=== PATIENT | female | born 1950 | race Caucasian/White ===

== ENCOUNTER 2016-11-16 19:51 | Emergency (ER) | payer MEDICARE, OTHER ==
[~2016-11-16] VITALS: Ht 160 cm; Wt 81.6 kg
[~2016-11-16 19:51] MED LIST: METF1000 PO; MIC5 PO; NAPR500T1 PO; TRAM100T11 PO; VENL75CE5 PO
[2016-11-16 20:03] VITALS: BP 121/74
--- NOTE | 2016-11-16 21:08 | NUR ---
TO ER BED 3
--- NOTE | 2016-11-16 21:32 | NUR ---
66Y/F PT. PRESENTS TO ED WITH C/O COUGH WITH FEVER X 1 WK. HX. DM. AAO X4, AMBULATORY WITH STEADY GAIT. RESPIRATIONS ROOM AIR, EVEN AND UNLABORED. C/O PRODUCTIVE COUGH NOTED. C/O PAIN 08/17. VSS, ER MADE AWARE OF PT. STATUS.
--- NOTE | 2016-11-16 21:32 | NUR ---
Patient being evaluated by DR. NOYOLA at bedside.
[2016-11-16] MEDS ORDERED: ALBUTEROL 0.083% 2.5 MG/3 ML NEBU INH ONE (21:35)
[2016-11-16] MEDS ORDERED: predniSONE 20 MG TAB PO ONE (21:35)
[2016-11-16] MEDS ORDERED: IPRATROPIUM 0.02% 0.5 MG/2.5 ML NEBU INH ONE (21:35)
[2016-11-16 22:24] VITALS: BP 122/60
--- NOTE | 2016-11-16 22:25 | NUR ---
Patient discharged with v/s stable. Written and verbal after care instructions given and explained. Patient alert, oriented and verbalized understanding of instructions. Ambulatory with steady gait. All questions addressed prior to discharge. ID band removed. Patient advised to follow up with PMD. Rx of PREDNISONE 20 MG, DEXTROMETHROPHAN/PROMETHAZINE 15/6.25MG/5ML, ALBUTEROL 90 MCG/ACTUATION given. Patient educated on indication of medication including possible reaction and side effects. Opportunity to ask questions provided and answered.
== END 2016-11-16 22:25 | disposition home or self-care (01) ==
LOC: MED 19:51
DX: J20.9 Acute bronchitis, unspecified (principal); E11.9 Type 2 diabetes mellitus without complications
CPT/HCPCS: 71020; 99284; J7512; J7613; J7644; 94640

== ENCOUNTER 2016-12-14 00:15 | Emergency (ER) | payer OTHER ==
[~2016-12-14] VITALS: Ht 160 cm; Wt 78.0 kg
[2016-12-14 00:18] VITALS: BP 126/73
--- NOTE | 2016-12-14 00:29 | NUR ---
LEDY MONTERROSOR TO ER BED 3
--- NOTE | 2016-12-14 00:34 | NUR ---
66 Y/O F W/C/O RT LEG PAIN TODAY. PT STATES HAD SURGERY TO REMOVED VARICOSE VEINS X 2 MTHS AGO. MED HX HTN, DM TYPE 2, AND VARICOSE VEINS. TAMI HOWE MADE AWARE.
--- NOTE | 2016-12-14 00:46 | NUR ---
Patient being evaluated by physician at bedside.
[2016-12-14] MEDS ORDERED: KETOROLAC 60 MG/2 ML VIAL IM ONE (00:55)
--- NOTE | 2016-12-14 01:20 | NUR ---
ULTRASOUND AT BEDSIDE.
[2016-12-14 03:05] VITALS: BP 128/59
--- NOTE | 2016-12-14 03:05 | NUR ---
Patient discharged with v/s stable. Written and verbal after care instructions given and explained. Patient alert, oriented and verbalized understanding of instructions. Ambulatory with steady gait. All questions addressed prior to discharge. ID band removed. Patient advised to follow up with PMD OR RETURN BACK TO WORK IF CONDITION WORSENS. Rx of MOTRIN, AND TRAMADOL given. Patient educated on indication of medication including possible reaction and side effects. Opportunity to ask questions provided and answered.
== END 2016-12-14 03:05 | disposition home or self-care (01) ==
LOC: MED 00:15
DX: I80.01 Phlebitis and thrombophlebitis of superficial vessels of right lower extremity (principal); R03.0 Elevated blood-pressure reading, without diagnosis of hypertension; E11.9 Type 2 diabetes mellitus without complications; Z79.899 Other long term (current) drug therapy; Z88.8 Allergy status to other drugs, medicaments and biological substances
CPT/HCPCS: 73562; 93971; 96372; 99284; J1885; Q0092

== ENCOUNTER 2018-05-07 16:57 | Emergency (ER) | payer OTHER ==
[~2018-05-07] VITALS: Ht 160 cm; Wt 78.0 kg
[~2018-05-07 16:57] MED LIST changes: +NAPR-54 PO; -NAPR500T1 PO
[2018-05-07 17:02] VITALS: BP 150/84
--- NOTE | 2018-05-07 19:00 | NUR ---
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 PT STATES HER ARM "FEELS LIKE IT WAS ELECTROCUTED". DENIES PAIN, FULL CLEAR SPEECH, NO MOTOR DEFICITS IN BILAT EXTREMS, SMILE SYMMETRICAL. -- BS: 136 -- PMH: DM, HTN, HYPERCHOLESTEROLEMIA, DEPRESSION
--- NOTE | 2018-05-07 21:00 | NUR ---
DR. NOVAK AT BEDSIDE FOR EVALUATION.
[2018-05-07] MEDS ORDERED: CHOL200072 PO (21:13)
[2018-05-07] MEDS ORDERED: ATOR20TA PO (21:13)
[2018-05-07] MEDS ORDERED: CARV6.252 PO (21:13)
[2018-05-07] MEDS ORDERED: LISI2.5T12 PO (21:13)
[2018-05-07] MEDS ORDERED: VENL150C1 PO (21:13)
[2018-05-07] MEDS ORDERED: HUM SUBQ (21:13)
[2018-05-07 21:34] LABS: BASOPHILS # (AUTO) 0.1 K/uL (0.00-0.22); BASOPHILS % (AUTO) 0.6 % (0.0-2.0); EOSINOPHILS # (AUTO) 0.3 K/uL (0-0.4); EOSINOPHILS % (AUTO) 3.3 % (0.0-4.0); HEMATOCRIT 40.1 % (36-48); HEMOGLOBIN 13.2 g/dL (12.0-16.0); LYMPHOCYTES # (AUTO) 3.1 K/uL (2.5-16.5); LYMPHOCYTES % (AUTO) 35.4 % (20.5-51.1); MEAN CORPUSCULAR HEMOGLOBIN 30 pg (27-31); MEAN CORPUSCULAR HGB CONC 33 g/dL (33-37); MEAN CORPUSCULAR VOLUME 91.9 fL (80-94); MONOCYTES # (AUTO) 0.5 K/uL (0.8-1.0); MONOCYTES % (AUTO) 6.1 % (1.7-9.3); NEUTROPHILS # (AUTO) 4.7 K/uL (1.8-7.7); NEUTROPHILS % (AUTO) 54.6 % (42.2-75.2); PLATELET COUNT (AUTO) 289 K/uL (140-450); RED BLOOD CELL COUNT(AUTO) 4.36 MIL/uL (4.20-5.40); RED CELL DISTRIBUTION WIDTH 13.6 % (11.6-13.7); WHITE BLOOD COUNT (AUTO) 8.7 K/uL (4.8-10.8)
[2018-05-07 21:43] LABS: APPEARANCE,URINE CLEAR (CLEAR); BILIRUBIN,URINE NEGATIVE (NEGATIVE); BLOOD, URINE NEGATIVE (NEGATIVE); COLOR,URINE YELLOW (YELLOW); LEUKOCYTE ESTERASE ,URINE NEGATIVE (NEGATIVE); NITRITE, URINE NEGATIVE (NEGATIVE); PH,URINE 8.5 (5.0-9.0); UGLUCOSE 1+ (NEGATIVE)
[2018-05-07 21:50] LABS: ANION GAP 12.4 (8-16); CARBON DIOXIDE 28.5 mmol/L (21-32); CREATININE 0.5 mg/dL (0.6-1.3); POTASSIUM 3.9 mmol/L (3.5-5.1)
[2018-05-07 21:57] LABS: ALBUMIN 3.2 g/dL (3.4-5.0); CHOL/HDL RATIO 3.8 (1-4.5); TOTAL BILIRUBIN 0.3 mg/dL (0.0-1.0)
[2018-05-07] MEDS ORDERED: KETOROLAC 60 MG/2 ML VIAL IM ONE (22:50)
--- NOTE | 2018-05-07 23:30 | NUR ---
Patient discharged with v/s stable. Written and verbal after care instructions given and explained. Patient alert, oriented and verbalized understanding of instructions. Ambulatory with steady gait. All questions addressed prior to discharge. ID band removed. Patient advised to follow up with PMD. Rx of NEURTONIN given. Patient educated on indication of medication including possible reaction and side effects. Opportunity to ask questions provided and answered.
[2018-05-08 02:29] VITALS: BP 141/79
== END 2018-05-07 23:30 | disposition home or self-care (01) ==
LOC: MED 16:57
DX: E11.42 Type 2 diabetes mellitus with diabetic polyneuropathy (principal); I10 Essential (primary) hypertension; Z79.4 Long term (current) use of insulin; Z79.899 Other long term (current) drug therapy; Z88.8 Allergy status to other drugs, medicaments and biological substances
CPT/HCPCS: 36415; 80053; 80061; 81003; 81025; 83036; 84484; 85025; 96372; 99283; J1885

== ENCOUNTER 2018-11-09 19:39 | Emergency (ER) | payer OTHER ==
[~2018-11-09] VITALS: Ht 160 cm; Wt 81.8 kg
[~2018-11-09 19:39] MED LIST changes: +ASPI81CT95 PO; +ATOR20TA PO; +BENA20TA PO; +CARV6.252 PO; +CHOL200072 PO; +ERGO2000 PO; +GLYB5TAB9 PO; +HUM SUBQ; +LANC-947 MC; +LISI2.5T12 PO; +MECL-272 PO; +METF100028 PO; -MIC5 PO; -NAPR-54 PO; +ORE25 PO; +PIOG30TA PO; +QUIN20TA PO; +TELM40TA1 PO; -TRAM100T11 PO; +TUJEO SQ; +VENL150C1 PO; -VENL75CE5 PO; +VENL75TA17 PO
[2018-11-09 19:52] VITALS: BP 129/60
[2018-11-09 21:04] VITALS: BP 129/60
== END 2018-11-09 21:04 | disposition home or self-care (01) ==
LOC: MERGE 19:39 → MED 19:39
DX: S46.812A Strain of other muscles, fascia and tendons at shoulder and upper arm level, left arm, initial encounter (principal); E11.9 Type 2 diabetes mellitus without complications; I10 Essential (primary) hypertension; Z98.890 Other specified postprocedural states; Z79.4 Long term (current) use of insulin; Z79.899 Other long term (current) drug therapy; Z88.8 Allergy status to other drugs, medicaments and biological substances; X58.XXXA Exposure to other specified factors, initial encounter; Y93.89 Activity, other specified; Y92.89 Other specified places as the place of occurrence of the external cause; Y99.8 Other external cause status
CPT/HCPCS: 99283

== ENCOUNTER 2018-12-18 09:38 | Inpatient (IN) | payer OTHER ==
[~2018-12-18] VITALS: Ht 152.4 cm; Wt 77.6 kg
[2018-12-18 09:38] VITALS: BP 148/70
--- NOTE | 2018-12-18 09:38 | NUR ---
PT BIBA TO ER BED 10
--- NOTE | 2018-12-18 10:10 | NUR ---
Patient stated she has been week for 2 days with nausea, vommiting and non-bloody diahrera. She stated she has pain in both arms 8/10. The patient has a history of diabetes and hypertension. Denies fever and chills.
[2018-12-18] MEDS ORDERED: NACL 0.9% 1,000 ML IV SCH (10:18)
[2018-12-18] MEDS ORDERED: MORPHINE SULFATE 2 MG/ML SYR IVP ONE (10:20)
[2018-12-18] MEDS ORDERED: ONDANSETRON 4 MG/2 ML VIAL IVP ONE (10:20)
--- NOTE | 2018-12-18 10:45 | NUR ---
Patient had an episode of diahrea, non-bloody. Patient was cleaned and sheets were changed.
[2018-12-18 10:55] LABS: HEMATOCRIT 43.7 % (36-48); HEMOGLOBIN 14.5 g/dL (12.0-16.0); MEAN CORPUSCULAR HEMOGLOBIN 30 pg (27-31); MEAN CORPUSCULAR HGB CONC 33 g/dL (33-37); MEAN CORPUSCULAR VOLUME 90.6 fL (80-94); PLATELET COUNT (AUTO) 273 K/uL (140-450); RED BLOOD CELL COUNT(AUTO) 4.82 MIL/uL (4.20-5.40); RED CELL DISTRIBUTION WIDTH 14.1 % (11.6-13.7); WHITE BLOOD COUNT (AUTO) 19.9 K/uL (4.8-10.8)
[2018-12-18 11:04] LABS: APPEARANCE,URINE HAZY (CLEAR); BILIRUBIN,URINE NEGATIVE (NEGATIVE); BLOOD, URINE TRACE-I (NEGATIVE); COLOR,URINE YELLOW (YELLOW); LEUKOCYTE ESTERASE ,URINE TRACE (NEGATIVE); NITRITE, URINE NEGATIVE (NEGATIVE); UGLUCOSE 3+ (NEGATIVE)
[2018-12-18 11:10] LABS: ANION GAP 16.5 (8-16); CARBON DIOXIDE 24.7 mmol/L (21-32); CREATININE 0.7 mg/dL (0.6-1.3); POTASSIUM 3.2 mmol/L (3.5-5.1)
[2018-12-18 11:16] LABS: ALBUMIN 3.4 g/dL (3.4-5.0); TOTAL BILIRUBIN 0.7 mg/dL (0.0-1.0)
[2018-12-18 11:19] LABS: BASOPHILS % (MANUAL) 0 % (0-2); EOSINOPHILS % (MANUAL) 0 % (0-4); LYMPHOCYTES % (MANUAL) 4 % (20-46); MONOCYTES % (MANUAL) 10 % (5-12); PROTHROMBIN TIME 10.8 secs (10.8-13.4)
--- NOTE | 2018-12-18 11:24 | NUR ---
PT TAKEN FOR CT SCAN VIA [facility].
[2018-12-18] MEDS ORDERED: NACL 0.9% 1,500 ML IV ONE (11:25)
[2018-12-18] MEDS ORDERED: LEVOFLOXACIN 500 MG/D5W PREMIX 100 ML IV ONE (11:25)
[2018-12-18 11:28] LABS: RBC,URINE 0-5 /HPF (0-5)
[2018-12-18 11:29] LABS: URINE AMORPHOUS URATE 1+ /HPF (None Seen); WBC,URINE 0-5 /HPF (0-5)
[2018-12-18 11:30] LABS: YEAST,URINE Few /HPF (None Seen)
--- NOTE | 2018-12-18 12:28 | NUR ---
PT AND PT'S DAUGHTER DO NOT KNOW HOME MEDS. PT'S DAUGHTER STATES SHE WILL GO HOME AND GET THE LIST.
[2018-12-18] MEDS ORDERED: MORPHINE SULFATE 4 MG/ML SYR IVP PRN (13:55)
[2018-12-18] MEDS ORDERED: INSULIN LISPRO SLIDING SCALE 100 UNITS/ML VIAL SUBQ PRN (13:55)
[2018-12-18] MEDS ORDERED: LORazepam 2 MG/ML VIAL IVP PRN (13:55)
[2018-12-18] MEDS ORDERED: ONDANSETRON 4 MG/2 ML VIAL IVP PRN (13:55)
[2018-12-18] MEDS ORDERED: ALBUTEROL 0.083% 2.5 MG/3 ML NEBU INH PRN (13:55)
[2018-12-18] MEDS ORDERED: DEXTROSE 50% 50 ML SYR IVP PRN (13:55)
[2018-12-18] MEDS ORDERED: MORPHINE SULFATE 2 MG/ML SYR IVP PRN (13:55)
[2018-12-18] MEDS ORDERED: POTASSIUM CHLORIDE 40 MEQ, LIDOCAINE MPF 1% 25 MG in NACL 0.9% 250 ML IV ONE (15:30)
--- NOTE | 2018-12-18 15:45 | NUR ---
PT ADMITTED FROM ER. PATIENT COMING IN FROM HOME. LIVES WITH FAMILY. PT AWAKE AAOX3. DENIES PAIN AT TIME OF ADMISSION. REPORTS FEELING DIZZY. RESPIRATIONS EVEN AND UNLABORED ON 2L NC, CLEAR BREATH SOUNDS. IV IN PLACE PATENT AND ASYMPTOMATIC IN L AC 20G. PT ON CCHO 60G DIET. SINUS TACHY UPON ADMISSION WITH PULSE OF 108. BLOOD PRESSURE 123/56, TEMPERATURE 98. SKIN INTACT. FULL CODE. PT ACCOMPANIED BY HER DAUGHTER. INITIAL ASSESSMENT AND HISTORY DONE AT THIS TIME. BED IN LOW POSITION. SAFETY MEASURES IN PLACE. CALL LIGHT WITHIN REACH. WILL CONTINUE TO MONITOR.
--- NOTE | 2018-12-18 15:50 | NUR ---
Patient will be admitted to care of DR. CHRISTIANSON. Admited to TELE. Will go to room 118. Belongings list completed. Report to
[2018-12-18] MEDS: NACL 0.9% 1,000 ML IV SCH (16:00)
[2018-12-18] MEDS: ACETAMINOPHEN 325 MG TAB PO PRN ×2 (16:10→22:51)
[2018-12-18] MEDS: BLOOD GLUCOSE MONITORING 1 DEV DEV FS SCH ×2 (16:19→20:23)
[2018-12-18] MEDS: INSULIN LISPRO 100 UNITS/ML VIAL SUBQ SCH (17:01)
--- NOTE | 2018-12-18 17:07 | NUR ---
MEDICATIONS ADMINISTERED PER ORDER. PT TOLERATED WELL. SAFETY MEASURES IN PLACE. WILL CONTINUE TO MONITOR.
--- NOTE | 2018-12-18 18:52 | NUR ---
ROUNDS DONE AT THIS TIME. PT IN BED SLEEPING BUT AROUSABLE TO SPEECH. DENIES PAIN AT THIS TIME. SAFETY MEASURES IN PLACE. CALL LIGHT WITHIN REACH. WILL CONTINUE TO MONITOR.
--- NOTE | 2018-12-18 19:11 | NUR ---
BEDSIDE REPORT GIVEN TO NIGHT NURSE FOR CONTINUITY OF CARE.
--- NOTE | 2018-12-18 19:12 | NUR ---
RECEIVED ENDORSEMENT FROM AM SHIFT NURSE. PATIENT ALERT AND ORIENTED X3. NO APPARENT DISTRESS NOTED. INTRODUCED SELF AND UPDATED BOARD. IVF ON LEFT AC 20G INFUSING WELL. BED ON LOW POSITION. CALL LIGHT WITHIN REACH. WILL CONTINUE TO MONITOR.
[2018-12-18 20:00] VITALS: BP 105/49
[2018-12-18] MEDS: PIPERACILLIN/TAZOBACTAM 3.375 GM in DEXTROSE 5% 50 ML IV SCH (20:23)
[2018-12-18] MEDS ORDERED: ATORVASTATIN 20 MG TAB PO SCH ×2 (21:00)
[2018-12-18] MEDS: CARVEDILOL 6.25 MG TAB PO SCH (21:00)
--- NOTE | 2018-12-18 21:10 | NUR ---
PATIENT ASLEEP IN BED. NO APPARENT DISTRESS NOTED. WILL CONTINUE TO MONITOR.
--- NOTE | 2018-12-18 23:05 | NUR ---
PATIENT ASLEEP IN BED. NO DISTRESS NOTED. VISIBLE CHEST RISE AND FALL. WILL CONTINUE TO MONITOR.
[2018-12-19] VITALS: BP 117/53
--- NOTE | 2018-12-19 01:00 | NUR ---
PATIENT ASLEEP IN BED. BED IN LOW POSITION. CALL LIGHT WITHIN REACH. WILL CONTINUE TO MONITOR.
--- NOTE | 2018-12-19 02:55 | NUR ---
PATIENT ASLEEP IN BED. NO APPARENT DISTRESS NOTED. WILL CONTINUE TO MONITOR.
[2018-12-19 04:00] VITALS: BP 134/86
[2018-12-19] MEDS: NACL 0.9% 1,000 ML IV SCH (04:19)
--- NOTE | 2018-12-19 04:50 | NUR ---
PATIENT AWAKE IN BED. TALKING TO FAMILY ON PHONE. NO APPARENT DISTRESS NOTED. DENIES PAIN. WILL CONTINUE TO MONITOR.
[2018-12-19] MEDS: PIPERACILLIN/TAZOBACTAM 3.375 GM in DEXTROSE 5% 50 ML IV SCH ×2 (05:34→12:58)
[2018-12-19] MEDS: BLOOD GLUCOSE MONITORING 1 DEV DEV FS SCH ×2 (05:38→12:19)
--- NOTE | 2018-12-19 06:45 | NUR ---
PATIENT ASLEEP IN BED. NO DISTRESS NOTED. WILL CONTINUE TO MONITOR.
--- NOTE | 2018-12-19 07:15 | NUR ---
RECEIVED PT FROM NIGHT NURSE. PT ASLEEP, AROUSABLE TO SPEECH, AAOX3. DENIES PAIN AT THIS TIME. NO DISTRESS NOTED. RESPIRATIONS EVEN AND UNLABORED ON ROOM AIR. IV IN PLACE L AC 22G PATENT AND ASYMPTOMATIC INFUSING PER ORDER. CONTACT PRECAUTIONS. BED IN LOW POSITION. SAFETY MEASURES IN PLACE. CALL LIGHT WITHIN REACH. WILL CONTINUE TO MONITOR.
--- NOTE | 2018-12-19 07:30 | NUR ---
ENDORSED TO AM SHIFT NURSE IN STABLE CONDITION FOR CONTINUITY OF CARE.
[2018-12-19 08:00] VITALS: BP 120/60
--- NOTE | 2018-12-19 08:28 | NUR ---
PATIENT HAS BEEN SCREENED AND CATEGORIZED MODERATE NUTRITION RISK. PATIENT WILL BE SEEN WITHIN 3-5 DAYS OF ADMISSION. 12/21/18 12/23/[address]
[2018-12-19] MEDS: CARVEDILOL 6.25 MG TAB PO SCH (08:31)
[2018-12-19] MEDS: INSULIN LISPRO 100 UNITS/ML VIAL SUBQ SCH ×2 (08:38→12:27)
--- NOTE | 2018-12-19 08:52 | NUR ---
MEDICATIONS GIVEN PER ORDER. PT TOLERATED WELL. NO DISTRESS NOTED. WILL CONTINUE TO MONITOR.
[2018-12-19] MEDS ORDERED: ENOXAPARIN 40 MG/0.4 ML SYR SUBQ SCH (09:00)
[2018-12-19] MEDS ORDERED: ASPIRIN 81 MG TAB.CHEW PO SCH (09:00)
[2018-12-19] MEDS ORDERED: NON-FORMULARY ITEM (Aspirin 1 TAB) PO SCH (09:00)
[2018-12-19] MEDS ORDERED: VENLAFAXINE XR 75 MG CAPER PO SCH (09:00)
[2018-12-19] MEDS ORDERED: LISINOPRIL 5 MG TAB PO SCH (09:00)
[2018-12-19] MEDS ORDERED: BENAZEPRIL 10 MG TAB PO SCH (09:00)
[2018-12-19 09:02] LABS: BASOPHILS % (AUTO) 0.3 % (0.0-2.0); EOSINOPHILS % (AUTO) 0.1 % (0.0-4.0); HEMATOCRIT 40.3 % (36-48); HEMOGLOBIN 13.2 g/dL (12.0-16.0); LYMPHOCYTES # (AUTO) 1.1 K/uL (2.5-16.5); LYMPHOCYTES % (AUTO) 11.1 % (20.5-51.1); MEAN CORPUSCULAR HEMOGLOBIN 30 pg (27-31); MEAN CORPUSCULAR HGB CONC 33 g/dL (33-37); MEAN CORPUSCULAR VOLUME 92.3 fL (80-94); MONOCYTES # (AUTO) 0.6 K/uL (0.8-1.0); MONOCYTES % (AUTO) 5.9 % (1.7-9.3); NEUTROPHILS # (AUTO) 8.6 K/uL (1.8-7.7); NEUTROPHILS % (AUTO) 82.6 % (42.2-75.2); PLATELET COUNT (AUTO) 244 K/uL (140-450); RED BLOOD CELL COUNT(AUTO) 4.36 MIL/uL (4.20-5.40); RED CELL DISTRIBUTION WIDTH 14.2 % (11.6-13.7); WHITE BLOOD COUNT (AUTO) 10.4 K/uL (4.8-10.8)
[2018-12-19 09:56] LABS: ALBUMIN 2.5 g/dL (3.4-5.0); ANION GAP 11.4 (8-16); CREATININE 0.6 mg/dL (0.6-1.3); POTASSIUM 4.4 mmol/L (3.5-5.1); TOTAL BILIRUBIN 0.4 mg/dL (0.0-1.0)
--- NOTE | 2018-12-19 11:17 | NUR ---
BLOOD GLUCOSE MONITORED AT THIS TIME. PT DENIES PAIN. NO DISTRESS NOTED. SAFETY MEASURES IN PLACE. CALL LIGHT WITHIN REACH. WILL CONTINUE TO MONITOR.
[2018-12-19] MEDS: ACETAMINOPHEN 325 MG TAB PO PRN (13:03)
--- NOTE | 2018-12-19 14:12 | NUR ---
PT ROUNDS DONE AT THIS TIME. PT DENIES PAIN. NO DISTRESS NOTED. WILL CONTINUE TO MONITOR.
[2018-12-19] MEDS ORDERED: INFLUENZA VACCINE QUAD 0.5 ML SYR IMVAC PRN (14:45)
[2018-12-19] MEDS ORDERED: PNEUMOCOCCAL VACCINE 23 MCG/0.5 ML VIAL IMVAC SCH (14:45)
[2018-12-19 14:49] VITALS: BP 104/60
[2018-12-19] MEDS ORDERED: CIPR500T4 PO (15:19)
[2018-12-19] MEDS ORDERED: METR250T2 PO (15:23)
[2018-12-19] MEDS ORDERED: METR500T1 PO (15:32)
--- NOTE | 2018-12-19 16:00 | NUR ---
PT READY FOR DISCHARGE AT THIS TIME. DISCHARGE AND FOLLOWUP TEACHING GIVEN AT THIS TIME. PT VERBALIZED UNDERSTANDING. PNA AND FLU VACCINE GIVEN AT THIS TIME. PT TOLERATED WELL. DISCHARGE PAPERWORK SIGNED AND COPY GIVEN TO PT. PT STABLE, AAOX4, RESPIRATIONS EVEN AND UNLABORED ON ROOM AIR. IV SITE REMOVED WITH MINIMAL BLOOD LOSS AND LUMEN INTACT. HOME MEDICATIONS RETURNED TO PT. PT BELONGINGS VERIFIED AND RETURNED. ID BANDS REMOVED. PT ESCORTED OFF THE UNIT ON FOOT IN PRESENCE OF HER DAUGHTER. PT LEFT THE HOSPITAL IN PRIVATE VEHICLE.
== END 2018-12-19 16:10 | disposition home or self-care (01) | DRG 872 ==
LOC: MED 09:38 → MTU 13:58
PROVIDERS: ADMIT Internal Medicine Pulmonary Disease; ATTEND Internal Medicine Pulmonary Disease
PROC: 3E02340 Introduction of Influenza Vaccine into Muscle, Percutaneous Approach (ICD-10-PCS; principal; 2018-12-19)
PROC: 3E0234Z Introduction of Serum, Toxoid and Vaccine into Muscle, Percutaneous Approach (ICD-10-PCS; 2018-12-19)
DX: A41.9 Sepsis, unspecified organism (principal); K52.9 Noninfective gastroenteritis and colitis, unspecified; I10 Essential (primary) hypertension; E87.6 Hypokalemia; E11.65 Type 2 diabetes mellitus with hyperglycemia; E66.9 Obesity, unspecified; Z23 Encounter for immunization; Z88.8 Allergy status to other drugs, medicaments and biological substances; Z79.4 Long term (current) use of insulin; Z79.84 Long term (current) use of oral hypoglycemic drugs; Z68.33 Body mass index [BMI] 33.0-33.9, adult
CPT/HCPCS: 36415; 71045; 80053; 81001; 82948; 83605; 83690; 83880; 84484; 85025; 85610; 85730; 87040; 87070; 87081; 87086; 90732; 93005; 96361; 96365; 96375; 99291; C1758; J1650; J1815; J1956; J2001; J2270; J2405; J2543; J3480; J7030; J7060

== ENCOUNTER 2019-11-06 20:05 | Emergency (ER) | payer OTHER ==
[~2019-11-06] VITALS: Ht 160 cm; Wt 80.7 kg
[~2019-11-06 20:05] MED LIST changes: +CIPR500T4 PO; -MECL-272 PO; +MECL-311 PO; +METR500T1 PO; -PIOG30TA PO; +PIOG30TA51 PO
[2019-11-06 20:14] VITALS: BP 129/79
--- NOTE | 2019-11-06 20:19 | NUR ---
to ED bed 03.
--- NOTE | 2019-11-06 20:27 | NUR ---
Emergency Contact: Marga Rodriguez [phone] (daughter).
--- NOTE | 2019-11-06 20:39 | NUR ---
Dr. Gaitan examining patient.
[2019-11-06] MEDS ORDERED: KETOROLAC 15 MG/ML VIAL IVP ONE (20:40)
[2019-11-06] MEDS ORDERED: ONDANSETRON 4 MG/2 ML VIAL IVP ONE (20:40)
[2019-11-06] MEDS ORDERED: MORPHINE SULFATE 2 MG/ML SYR IVP ONE (20:45)
--- NOTE | 2019-11-06 20:48 | NUR ---
PT C/O GENERALIZED WEAKNESS ALONG WITH DIZZINESS, NAUSEA, AND VOMITED X 4 TODAY, NO DIARRHEA. DENIES ANY PAIN. ABD SOFT ROUND, NONTENDER. AFEBRILE, NO SOB. PT STATES SHE HASN'T BEEN ABLE TO KEEP ANYTHING DOWN. HER DOCTOR PRESCRIBED HER ZOFRAN TODAY BUT IT HASN'T HELP WITH THE VOMITING. BED IN LOWEST POSITION AND SIDERAIL UP X 1. ALLERGY - DICLOFENAC, FLUCONAZOLE HX - DM, HTN
[2019-11-06 20:58] LABS: BASOPHILS # (AUTO) 0.1 K/uL (0.00-0.22); BASOPHILS % (AUTO) 0.6 % (0.0-2.0); EOSINOPHILS # (AUTO) 0.1 K/uL (0-0.4); EOSINOPHILS % (AUTO) 0.7 % (0.0-4.0); HEMATOCRIT 44.2 % (36-48); HEMOGLOBIN 14.8 g/dL (12.0-16.0); LYMPHOCYTES # (AUTO) 2.7 K/uL (2.5-16.5); LYMPHOCYTES % (AUTO) 25.7 % (20.5-51.1); MEAN CORPUSCULAR HEMOGLOBIN 30 pg (27-31); MEAN CORPUSCULAR HGB CONC 33 g/dL (33-37); MEAN CORPUSCULAR VOLUME 90.1 fL (80-94); MONOCYTES # (AUTO) 0.5 K/uL (0.8-1.0); NEUTROPHILS # (AUTO) 7.2 K/uL (1.8-7.7); PLATELET COUNT (AUTO) 331 K/uL (140-450); RED CELL DISTRIBUTION WIDTH 13.4 % (11.6-13.7); WHITE BLOOD COUNT (AUTO) 10.5 K/uL (4.8-10.8)
[2019-11-06] MEDS ORDERED: NACL 0.9% 1,000 ML IV ONE (21:05)
[2019-11-06 21:27] LABS: ALBUMIN 3.9 g/dL (3.4-5.0); ANION GAP 14.1 (8-16); CREATININE 0.7 mg/dL (0.6-1.3); POTASSIUM 3.1 mmol/L (3.5-5.1); TOTAL BILIRUBIN 0.7 mg/dL (0.0-1.0)
[2019-11-06] MEDS ORDERED: POTASSIUM CHLORIDE 10 MEQ TABER PO ONE ×2 (21:40→22:16)
[2019-11-06] MEDS ORDERED: POTASSIUM CHLORIDE 10 MEQ TABER PO SCH (22:15)
[2019-11-06 22:24] VITALS: BP 124/79
== END 2019-11-06 22:25 | disposition home or self-care (01) ==
LOC: MED 20:05
DX: E87.6 Hypokalemia (principal); E11.9 Type 2 diabetes mellitus without complications; R11.2 Nausea with vomiting, unspecified; I10 Essential (primary) hypertension; M13.80 Other specified arthritis, unspecified site; Z88.6 Allergy status to analgesic agent; Z88.8 Allergy status to other drugs, medicaments and biological substances; Z79.899 Other long term (current) drug therapy; Z79.84 Long term (current) use of oral hypoglycemic drugs; Z79.82 Long term (current) use of aspirin
CPT/HCPCS: 36415; 80053; 82948; 83690; 84484; 85025; 93005; 96361; 96374; 96375; 99284; J2270; J2405

== ENCOUNTER 2020-01-01 12:11 | Emergency (ER) | payer OTHER ==
[~2020-01-01] VITALS: Ht 160 cm; Wt 78.0 kg
[2020-01-01 12:24] VITALS: BP 147/70
--- NOTE | 2020-01-01 12:30 | NUR ---
COVID SWAB SENT TO LAB
--- NOTE | 2020-01-01 12:30 | NUR ---
BIB SON C/O COUGH, RUNNY NOSE, BODY ACHE 7/10, FATIQUE, X 1 WEEK. BLOOD SUGAR 274 AT THIS TIME. MED HX: DM, HTN,HLD, ARTHRITIA, BOTH SHOULDER SURGERY
[2020-01-01 14:46] VITALS: BP 147/70
--- NOTE | 2020-01-01 14:47 | NUR ---
Patient discharged with v/s stable. Written and verbal after care instructions given and explained. Patient verbalized understanding. Ambulatory with steady gait. All questions addressed prior to discharge. Advised to follow up with PMD.
--- NOTE | 2020-01-02 16:29 | NUR ---
Covid results received from lab. Results = POSITIVE. Hard copy requested from lab and placed in infection controls mailbox.
== END 2020-01-01 14:47 | disposition home or self-care (01) ==
LOC: MED 12:11
DX: M79.10 Myalgia, unspecified site (principal); Z20.828 Contact with and (suspected) exposure to other viral communicable diseases; E11.9 Type 2 diabetes mellitus without complications; I10 Essential (primary) hypertension; Z79.4 Long term (current) use of insulin; Z79.899 Other long term (current) drug therapy; Z79.82 Long term (current) use of aspirin; Z88.8 Allergy status to other drugs, medicaments and biological substances
CPT/HCPCS: 82948; 99283; U0003

== ENCOUNTER 2020-01-10 17:48 | Inpatient (IN) | payer OTHER, SELFPAY ==
[~2020-01-10] VITALS: Ht 160 cm; Wt 78.5 kg
[2020-01-10 18:00] VITALS: BP 125/78
[2020-01-10] MEDS ORDERED: AZITHROMYCIN 500 MG in DEXTROSE 5% 250 ML IV ONE (18:10)
[2020-01-10] MEDS ORDERED: DEXAMETHASONE 10 MG/ML VIAL IVP ONE (18:10)
--- NOTE | 2020-01-10 18:11 | NUR ---
69 YEAR OLD FEMALE COMPLAINS OF SOB X 2 WEEKS. IN TRIAGE PT O2 SATURATION IN 70'S ON RA, PLACED ON 4L NC AND O2 SATURATION NOW 95% WITH RR 17. PT STATES SHE ALSO HAS LOST APPETITE AND SMELL, AND HAS RECENTLY TESTED POSITIVE FOR COVID 19. LUNGS CLEAR BL. PT AOX4, BREATHING EVEN AND UNLABORED, SKIN WARM AND DRY. BED IN LOWEST POSITION, LOCKED, BED RAIL UPX1. PMH - HTN, DM2 ALLERGIES - DICLOFENAC
[2020-01-10] MEDS ORDERED: cefTRIAXone 1,000 MG VIAL ONE (18:26)
[2020-01-10 19:10] LABS: ANION GAP 12.7 (8-16); CARBON DIOXIDE 28.4 mmol/L (21-32); CREATININE 0.7 mg/dL (0.6-1.3); POTASSIUM 4.1 mmol/L (3.5-5.1); TOTAL BILIRUBIN 0.4 mg/dL (0.0-1.0)
--- NOTE | 2020-01-10 19:20 | NUR ---
REPORT RECEIVED FROM DEANNA VILLARREAL FOR CONTINUITY OF CARE
--- NOTE | 2020-01-10 19:20 | NUR ---
REPORT GIVEN TO JIMY VILLARREAL, TRANSFER OF CARE AT THIS TIME
[2020-01-10 19:23] LABS: C-REACTIVE PROTEIN QUANT 3.2 mg/dL (0.0-0.9)
[2020-01-10] MEDS ORDERED: AZITHROMYCIN 500 MG INJ VIAL IV ONE (19:23)
[2020-01-10 19:26] LABS: PROTHROMBIN TIME 10.1 secs (10.8-13.4)
[2020-01-10 19:37] LABS: LACTATE DEHYDROGENASE 467 U/L (81-234)
[2020-01-10 19:50] LABS: BASOPHILS % (AUTO) 0.1 % (0.0-2.0); HEMOGLOBIN 14.1 g/dL (12.0-16.0); LYMPHOCYTES # (AUTO) 0.7 K/uL (2.5-16.5); LYMPHOCYTES % (AUTO) 6.1 % (20.5-51.1); MEAN CORPUSCULAR HEMOGLOBIN 30 pg (27-31); MEAN CORPUSCULAR HGB CONC 34 g/dL (33-37); MEAN CORPUSCULAR VOLUME 88.5 fL (80-94); MONOCYTES # (AUTO) 0.4 K/uL (0.8-1.0); MONOCYTES % (AUTO) 3.8 % (1.7-9.3); NEUTROPHILS # (AUTO) 9.5 K/uL (1.8-7.7); PLATELET COUNT (AUTO) 402 K/uL (140-450); RED BLOOD CELL COUNT(AUTO) 4.75 MIL/uL (4.20-5.40); WHITE BLOOD COUNT (AUTO) 10.6 K/uL (4.8-10.8)
--- NOTE | 2020-01-10 20:07 | NUR ---
Kat guillen in [place] - 01/10/20 at [address] [facility] URINE AND RUDY SWAB COLLECTED AND HANDED TO CASTING ROOM OPERATOR
--- NOTE | 2020-01-10 20:07 | NUR ---
URINE AND RUDY SWAB COLLECTED AND HANDED TO NEGATIVE STRIPPER
[2020-01-10] MEDS ORDERED: PHE25S RC (20:26)
[2020-01-10 20:30] LABS: APPEARANCE,URINE CLEAR (CLEAR); BILIRUBIN,URINE NEGATIVE (NEGATIVE); BLOOD, URINE NEGATIVE (NEGATIVE); COLOR,URINE YELLOW (YELLOW); LEUKOCYTE ESTERASE ,URINE NEGATIVE (NEGATIVE); NITRITE, URINE NEGATIVE (NEGATIVE); PH,URINE 6.5 (5.0-9.0); UGLUCOSE 3+ (NEGATIVE)
[2020-01-10 20:49] LABS: RBC,URINE 0-5 /HPF (0-5); WBC,URINE 0-5 /HPF (0-5)
[2020-01-10] MEDS ORDERED: INSU-1165 SQ (20:50)
[2020-01-10] MEDS ORDERED: INSU100I7 SQ (20:50)
[2020-01-10] MEDS ORDERED: METF1000 PO (20:50)
--- NOTE | 2020-01-10 21:15 | NUR ---
PT C/O 08/17 HEADACHE. ERMD MADE AWARE. ORDERS RECEIEVED.
[2020-01-10] MEDS ORDERED: ACETAMINOPHEN 325 MG TAB PO ONE (21:20)
--- NOTE | 2020-01-10 21:20 | NUR ---
LAB AT BEDSIDE
[2020-01-10] MEDS ORDERED: LORazepam 1 MG TAB PO PRN ×2 (21:40→22:30)
[2020-01-10] MEDS ORDERED: KCL 20 MEQ/WATER INJ PREMIX 200 ML IV PRN ×2 (21:40→22:30)
[2020-01-10] MEDS ORDERED: HYDROcodone/APAP 5/325 MG 1 TAB TAB PO PRN ×2 (21:40→22:30)
[2020-01-10] MEDS ORDERED: NACL 0.9% IV SCH (21:40)
[2020-01-10] MEDS ORDERED: MAG SULF 2000 MG/WATER PREMIX 50 ML IV PRN ×2 (21:40→22:30)
[2020-01-10] MEDS ORDERED: AZITHROMYCIN 500 MG in DEXTROSE 5% 250 ML IV SCH (21:40)
[2020-01-10] MEDS ORDERED: CEFTRIAXONE IV SCH (21:40)
[2020-01-10] MEDS ORDERED: POTASSIUM CHLORIDE 10 MEQ TABER PO PRN ×2 (21:40→22:30)
[2020-01-10] MEDS ORDERED: MAGNESIUM OXIDE 400 MG TAB PO PRN (21:40)
[2020-01-10] MEDS ORDERED: ZOLPIDEM 5 MG TAB PO PRN ×2 (21:40→22:30)
[2020-01-10] MEDS ORDERED: ACETAMINOPHEN 325 MG TAB PO PRN (21:40)
--- NOTE | 2020-01-10 21:41 | NUR ---
RECIEVED CALL FROM PT'S DAUGHTER CLEMENT, UPDATED ON PT STATUS. ALL QUESTIONS AND CONCERNS ANSWERED AT THIS TIME.
[2020-01-10] MEDS ORDERED: DEXTROSE 50% 50 ML SYR IVP PRN ×2 (21:55→22:30)
[2020-01-10] MEDS ORDERED: INSULIN LISPRO SLIDING SCALE 100 UNITS/ML VIAL SUBQ PRN (21:55)
--- NOTE | 2020-01-10 23:46 | NUR ---
Patient will be admitted to care of DR MILLER. Admited to MED SURG. Will go to room 118. Belongings list completed. Report to UMAIR VILLARREAL.
[2020-01-11] VITALS: BP 131/71
--- NOTE | 2020-01-11 | NUR ---
RECEIVED BEDSIDE REPORT FROM ER NURSE FOR CONTINUITY OF CARE. PT WAS TRANSFERRED TO THE BED VIA GURNEY. PT IS WEAK UPON AMBULATION. FALL PRECAUTION WILL BE IN PLACE. ALERT AND AWAKE, A&OX4. ON 6L O2 NC WITH O2 SAT AT 90%. BREATHING IS UNLABORED. NO RESPIRATORY DISTRESS NOTED. LUNG SOUNDS ARE CLEAR IN THE UPPER LOBES AND DIMINISHED IN THE LOWER LOBES BILATERALLY. SKIN IS WARM, DRY, AND INTACT. IV IS IN THE RIGHT AC 20 GAUGE SALINE LOCKED. VS ARE STABLE. PT IS COVID 19 POSITIVE AND DROPLET PRECAUTIONS IN PLACE. PLAN OF CARE DISCUSSED. BED IS IN THE LOWEST POSITION AND CALL LIGHT IS WITHIN REACH.
--- NOTE | 2020-01-11 01:01 | NUR ---
PT IS UP TO THE BEDSIDE COMMODE WITH ASSISTANCE FROM THE RN CCU. GAIT IS UNSTEADY AND PT IS WEAK. FALL PRECAUTIONS IN PLACE. PT VOIDED IN THE COMMODE. SHE IS BACK TO BED AND STABLE AT THIS TIME.
--- NOTE | 2020-01-11 03:00 | NUR ---
ROUNDED ON PT. SHE IS ASLEEP IN SEMI FOWLERS POSITION. NO RESPIRATORY DISTRESS NOTED. NO COUGHING AT THIS TIME. PT IS RESTING COMFORTABLY. O2 SAT IS AT 90% ON 6L O2 NC. PT IS STABLE.
[2020-01-11 04:00] VITALS: BP 128/71
--- NOTE | 2020-01-11 05:00 | NUR ---
PT IS UP TO THE BEDSIDE COMMODE WITH ASSISTANCE FROM THE HUMAN SERVICE COORDINATOR. PT IS UNSTEADY AND NEEDS OXYGEN WHEN AMBULATING. PT IS BACK IN BED AND NO DISTRESS NOTED. ON 6L O2 NC WITH O2 SAT AT 91%.
--- NOTE | 2020-01-11 05:53 | NUR ---
ROUNDED ON PT AND SHE HAD TAKEN OFF THE NASAL CANNULA. O2 SAT WAS AT 80%. PT WAS ASKED TO REPOSITION HERSELF FOR MAXIMUM LUNG EXPANSION AND NASAL CANNULA WAS PLACED BACK ON PT. BED WAS PLACED IN HIGH FOWLERS POSITION. PT IS ON 6L O2 NC AND THE O2 SAT IS NOW 90%. WILL CONTINUE TO MONITOR.
[2020-01-11] MEDS: INSULIN LISPRO SLIDING SCALE 100 UNITS/ML VIAL SUBQ PRN ×4 (06:12→21:56)
[2020-01-11] MEDS: BLOOD GLUCOSE MONITORING 1 DEV DEV FS SCH ×4 (06:12→21:57)
--- NOTE | 2020-01-11 06:12 | NUR ---
BS READING WAS 276. PT WAS GIVEN 6 UNITS HUMALOG INSULIN PER SLIDING SCALE. MEDICATION EDUCATION WAS PROVIDED AND PT VERBALIZED UNDERSTANDING.
--- NOTE | 2020-01-11 07:20 | NUR ---
ENDORSED PT TO DAY SHIFT NURSE FOR CONTINUITY OF CARE. PT IS AWAKE AND ALERT, A&OX4. ON 6L O2 NC WITH O2 SAT AT 90%. BREATHING IS UNLABORED. PT IS STABLE AT THIS TIME. PLAN OF CARE DISCUSSED.
--- NOTE | 2020-01-11 07:21 | NUR ---
RECEIVED REPORT FROM MATERIAL ASSISTANT RN FOR CONTINUITY OF CARE. PATIENT RESTING IN BED. AAOX4. ABLE TO MAKE NEEDS KNOWN. O2 SAT 85-88% WITH 6L NC. SKIN WARM AND DRY, INTACT. IV SITE TO RIGHT AC 20G SALINE LOCK. ABDOMEN SOFT AND NON TENDER. SAFETY MEASURES IN PLACE, CALL LIGHT WITHIN REACH. WILL CONTINUE TO CLOSELY MONITOR.
[2020-01-11] MEDS ORDERED: BLOOD GLUCOSE MONITORING 1 DEV DEV FS SCH (07:30)
[2020-01-11] MEDS ORDERED: hydroCHLOROthiazide 25 MG TAB PO SCH (09:00)
[2020-01-11] MEDS ORDERED: ENOXAPARIN 40 MG/0.4 ML SYR SUBQ SCH (09:00)
[2020-01-11] MEDS ORDERED: BENAZEPRIL 20 MG TAB PO SCH (09:00)
[2020-01-11] MEDS ORDERED: TELMISARTAN PO SCH (09:00)
[2020-01-11] MEDS ORDERED: DOCUSATE SODIUM 100 MG GELCAP PO SCH (09:00)
[2020-01-11] MEDS ORDERED: INSULIN LANTUS 100 UNITS/ML 10 ML VIAL SUBQ SCH (09:00)
[2020-01-11] MEDS ORDERED: VENLAFAXINE XR 75 MG CAPER PO SCH (09:00)
--- NOTE | 2020-01-11 09:10 | NUR ---
PATIENT HAS BEEN SCREENED AND CATEGORIZED MODERATE NUTRITION RISK. PATIENT WILL BE SEEN WITHIN 3-5 DAYS OF ADMISSION. 01/13/20 01/15/[address]
[2020-01-11] MEDS: ENOXAPARIN 40 MG/0.4 ML SYR SUBQ SCH (09:55)
[2020-01-11] MEDS: DOCUSATE SODIUM 100 MG GELCAP PO SCH (09:56)
[2020-01-11] MEDS: INSULIN LANTUS 100 UNITS/ML 10 ML VIAL SUBQ SCH (09:56)
[2020-01-11] MEDS: VENLAFAXINE XR 75 MG CAPER PO SCH (09:57)
[2020-01-11] MEDS: BENAZEPRIL 20 MG TAB PO SCH (09:57)
[2020-01-11] MEDS: hydroCHLOROthiazide 25 MG TAB PO SCH (09:57)
--- NOTE | 2020-01-11 09:57 | NUR ---
SCHEDULED MEDICATION GIVEN, EDUCATION PROVIDED, PATIENT VERBALIZED UNDERSTANDING AND TOLERATED THE PROCEDURE WELL. PATIENT'2 O2 SAT 85-86% WITH 6L NC. ENCOURAGED PATIENT TO RELAX AND TAKE DEEP BREATHE. O2 SAT INCREASED TO 89%-90%. HR 80. WILL CONTINUE TO MONITOR.
[2020-01-11] MEDS: LOSARTAN 50 MG TAB PO SCH (11:19)
--- NOTE | 2020-01-11 11:42 | NUR ---
6 UNITS OF HUMALOG GIVEN FOR BLOOD GLUCOSE LEVEL 263. O2 SAT 85% WITH 6L NC. AFTER PATIENT TAKE SOME DEEP BREATHE. O2 INCREASED TO 87%. PATIENT TALKING WITH HER SON OVER THE PHONE. WILL CONTINUE TO MONITOR.
[2020-01-11] MEDS: ACETAMINOPHEN 325 MG TAB PO PRN ×2 (11:56→21:56)
--- NOTE | 2020-01-11 11:56 | NUR ---
TYLENOL GIVEN FOR HEADACHE. O2 SAT 88%, PATIENT KEPT COMFORTABLE. SAFETY MEASURES IN PLACE, WILL CONTINUE TO MONITOR.
--- NOTE | 2020-01-11 12:15 | NUR ---
2 BAGS OF BELONGINGS GIVEN TO DAUGHTER CLEMENT
--- NOTE | 2020-01-11 12:57 | NUR ---
CHECKED PATIENT. O2 SAT 895 WITH 6L NC. PATIENT IN SITTING POSITION. UPDATED PATIENT'S CONDITION TO DR. MILLER. Addendum: 01/11/20 at 1553 by Kaye Cristobal RN 89%
--- NOTE | 2020-01-11 15:00 | NUR ---
DC PLANNIN YRS OLD FEMALE PATIENT WAS ADMITTED FROM HOME WITH A DX OF COVID 19 PNEUMONIA. PT HAS A HX OF HTN, HLD, DM AND ANXIETY/DEPRESSION. CXR SHOWED BILATERAL AIRSPACE OPACITIES. RAPID COVID TEST POSITIVE, PCR IS PENDING. URINE AND BLOOD CULTURE PENDING. STARTED ON COVID PROTOCOL IVF, IV ABX ROCEPHIN AND AZITHROMYCIN , DECADRON AND CONTINUE HOME MEDS. CONSULTED WITH PULMO AND ID. DC PLAN TO GO HOME WHEN STABLE CM TO FOLLOW Addendum: 01/15/20 at 1246 by Helen Johnson CM CM BREANNE OF [facility] UPDATED OF THE PATIENT'S CONDITION. Addendum: 01/16/20 at 1555 by Lorena Fernando RN DC PLANNING: SPOKE WITH DR NAVA FOR LTAC EVAL , PER DR NAVA WE NEED TO TRY TO WEAN HIM OFF O2 AND WILL MONITOR AND ORDERED RT TO WEAN O2. CM TO FOLLOW.
--- NOTE | 2020-01-11 15:15 | NUR ---
CHECKED THE PATIENT. RESTING IN BED. O2 SAT 90% WITH 6L NC. ENCOURAGED PATIENT TO TAKE DEEP BREATHE. SAFETY MEASURES IN PLACE. WILL CONTINUE TO MONITOR.
[2020-01-11 16:00] VITALS: BP 136/69
--- NOTE | 2020-01-11 16:25 | NUR ---
6 UNITS OF HUMALOG GIVEN FOR BLOOD GLUCOSE LEVEL 254. EDUCATION PROVIDED. ENCOURAGED PATIENT TO TAKE DEEP BREATHE AND PRONE POSITION. PATIENT VERBALIZED UNDERSTANDING. WILL CONTINUE TO MONITOR.
--- NOTE | 2020-01-11 18:15 | NUR ---
REMOVED IV AT RIGHT AC BECAUSE OF BLEEDING. INSERT NEW IV AT LEFT HAND WITH 24 G. WITH GOOD BLOOD RETURN AND EASILY TO FLUSH WITH NS. FIRST DOSE OF IV ROCEPHIN GIVEN VIA IVPB, EDUCATION PROVIDED. ALSO ASSISTED PATIENT TO USE THE RESTROOM. PATIENT DEMONSTRATED SOB AFTER USING THE BEDSIDE COMMODE. ENCOURAGED PATIENT TO TAKE DEEP BREATH AND RELAXATION TECHNIQUE. VERBALIZED UNDERSTANDING, WILL CONTINUE TO MONITOR.
--- NOTE | 2020-01-11 18:56 | NUR ---
FIRST DOSE OF ZITHROMAX GIVEN VIA IVPB, EDUCATION PROVIDED, PATIENT VERBALIZED UNDERSTANDING AND TOLERATED WELL. ENCOURAGED PATIENT TO TAKE DEEP BREATHE AGAIN. SAFETY MEASURES IN PLACE, CALL LIGHT WITHIN REACH IN REACH. WILL CONTINUE TO MONITOR. WILL ENDORSE PATIENT TO THE INFORMATION SECURITY ANALYST RN FOR CONTINUITY OF CARE.
[2020-01-11] MEDS ORDERED: CEFTRIAXONE IV SCH (19:00)
[2020-01-11] MEDS ORDERED: NACL 0.9% IV SCH (19:00)
--- NOTE | 2020-01-11 19:05 | NUR ---
RECEIVED BEDSIDE REPORT FROM DAY SHIFT NURSE FOR CONTINUITY OF CARE. PT IS AWAKE AND ALERT, A&OX4. ON 6L O2 NC WITH O2 SAT AT 88%. BREATHING IS UNLABORED. LUNG SOUNDS ARE CLEAR IN ALL LOBES BILATERALLY. COMMODE AT BEDSIDE FOR VOIDING WITH ASSIST. BOWEL SOUNDS ARE PRESENT. LAST BM WAS TODAY PER DAY SHIFT NURSE. SKIN IS WARM, DRY, AND INTACT. FALL PRECAUTIONS IN PLACE FOR GENERALIZED WEAKNESS. DROPLET PRECAUTIONS IN PLACE FOR POSITIVE COVID TEST. IV IS IN THE LEFT HAND 24 GAUGE, PATENT AND FLUSHING. PT IS STABLE. PLAN OF CARE DISCUSSED.
[2020-01-11] MEDS ORDERED: AZITHROMYCIN 500 MG in DEXTROSE 5% 250 ML IV SCH (19:30)
--- NOTE | 2020-01-11 19:39 | NUR ---
ENDORSED PATIENT TO STUDENT TEACHER RN FOR CONTINUITY OF CARE. PATIENT IN STABLE CONDITION.
[2020-01-11] MEDS ORDERED: remdesivir COMMUNICATION ORDER 1 EA MISC MC PRN (19:45)
[2020-01-11 20:00] VITALS: BP 106/61
[2020-01-11] MEDS ORDERED: ATORVASTATIN 20 MG TAB PO SCH (21:00)
--- NOTE | 2020-01-11 21:00 | NUR ---
PT IS SLEEPING IN SEMI FOWLERS POSITION. NO RESPIRATORY DISTRESS NOTED. O2 SAT AT 88% ON 6L O2 OXIMIZER. PT IS STABLE.
[2020-01-11] MEDS: ATORVASTATIN 20 MG TAB PO SCH (21:46)
--- NOTE | 2020-01-11 21:56 | NUR ---
BS READING WAS 304 AND PT RECEIVED 8 UNITS OF HUMALOG INSULIN PER SLIDING SCALE. PT WAS PROVIDED MEDICATION EDUCATION AND VERBALIZED UNDERSTANDING.
--- NOTE | 2020-01-11 23:30 | NUR ---
PT IS VERY ANXIOUS AND STATES THAT SHE FEEL LIKE SHE CAN'T BREATHE. PT IS SOB, LUNG SOUNDS ARE CLEAR, AND O2 SAT IS AT 88%. RT WAS CALLED TO THE BEDSIDE. PRACTICE BREATHING TECHNIQUES WITH HER TO DEEP BREATHE. ALSO INCREASED OXYGEN TO 15L O2 OXIMIZER. PT IS NOW AT 94% O2. PT IS STABLE.
--- NOTE | 2020-01-11 23:48 | NUR ---
PT WAS GIVEN ATIVAN FOR ANXIETY. PT APPEARS TO BE ANXIOUS AND IS CONCERNED ABOUT HER BREATHING. WORK OF BREATHING IS UNLABORED. O2 SAT IS AT 92%. PT WAS INSTRUCTED TO TAKE DEEP BREATHS THROUGH THE NOSE. PT VERBALIZED UNDERSTANDING. WILL CONTINUE TO MONITOR.
--- NOTE | 2020-01-12 01:30 | NUR ---
ROUNDED ON PT. SHE PULLED OFF OXIMIZER DOWN TO HER CHIN. PT WAS INFORMED THAT SHE HAS TO KEEP THE OXIMIZER ON IN ORDER TO GET ENOUGH OXYGEN TO HER BODY. SHE VERBALIZED UNDERSTANDING. IT WAS READJUSTED AND O2 SAT IS NOW 90%. WILL CONTINUE TO MONITOR PT.
--- NOTE | 2020-01-12 03:30 | NUR ---
PT KEEPS TAKING OFF OXIMIZER AND OXYGEN SATURATION WENT DOWN TO 80%. PT WAS GIVEN EDUCATION REGARDING THE IMPORTANCE OF OXYGEN TO THE BODY. PT VERBALIZED UNDERSTANDING. OXIMIZER IS BACK ON AT 15L O2 AND O2 SAT IS AT 92%. WILL CONTINUE TO MONITOR.
[2020-01-12 04:00] VITALS: BP 101/64
--- NOTE | 2020-01-12 05:07 | NUR ---
ROUNDED ON PT. SHE IS AWAKE AND ALERT. LAYING IN BED COMFORTABLY. NO DISTRESS NOTED. O2 SAT IS 95% ON 15L O2 OXIMIZER. PT IS STABLE.
[2020-01-12] MEDS: BLOOD GLUCOSE MONITORING 1 DEV DEV FS SCH ×4 (06:09→21:21)
[2020-01-12] MEDS: INSULIN LISPRO SLIDING SCALE 100 UNITS/ML VIAL SUBQ PRN ×4 (06:12→21:23)
--- NOTE | 2020-01-12 06:12 | NUR ---
PT'S BS WAS 294. PT RECEIVED 6 UNITS HUMALOG INSULIN PER SLIDING SCALE. PT IS STABLE AT THIS TIME.
--- NOTE | 2020-01-12 07:05 | NUR ---
ENDORSED PT TO DAY SHIFT NURSE FOR CONTINUITY OF CARE. PT IS STABLE AT THIS TIME. ON 15L O2 OXIMIZER WITH O2 SAT AT 90%. PLAN OF CARE DISCUSSED.
[2020-01-12] MEDS: DOCUSATE SODIUM 100 MG GELCAP PO SCH (08:57)
[2020-01-12] MEDS: LOSARTAN 50 MG TAB PO SCH (08:58)
[2020-01-12] MEDS: BENAZEPRIL 20 MG TAB PO SCH (08:58)
[2020-01-12] MEDS: VENLAFAXINE XR 75 MG CAPER PO SCH (08:58)
[2020-01-12] MEDS: hydroCHLOROthiazide 25 MG TAB PO SCH (08:58)
[2020-01-12] MEDS: ENOXAPARIN 40 MG/0.4 ML SYR SUBQ SCH (08:59)
[2020-01-12] MEDS: INSULIN LANTUS 100 UNITS/ML 10 ML VIAL SUBQ SCH (08:59)
[2020-01-12 09:23] LABS: BASOPHILS % (AUTO) 0.3 % (0.0-2.0); EOSINOPHILS # (AUTO) 0.1 K/uL (0-0.4); EOSINOPHILS % (AUTO) 1.2 % (0.0-4.0); HEMATOCRIT 43.8 % (36-48); HEMOGLOBIN 14.6 g/dL (12.0-16.0); LYMPHOCYTES # (AUTO) 1.3 K/uL (2.5-16.5); LYMPHOCYTES % (AUTO) 15.5 % (20.5-51.1); MEAN CORPUSCULAR HEMOGLOBIN 29 pg (27-31); MEAN CORPUSCULAR HGB CONC 33 g/dL (33-37); MEAN CORPUSCULAR VOLUME 88.2 fL (80-94); MONOCYTES # (AUTO) 0.4 K/uL (0.8-1.0); MONOCYTES % (AUTO) 4.7 % (1.7-9.3); NEUTROPHILS # (AUTO) 6.5 K/uL (1.8-7.7); NEUTROPHILS % (AUTO) 78.3 % (42.2-75.2); PLATELET COUNT (AUTO) 439 K/uL (140-450); RED BLOOD CELL COUNT(AUTO) 4.97 MIL/uL (4.20-5.40); RED CELL DISTRIBUTION WIDTH 13.8 % (11.6-13.7); WHITE BLOOD COUNT (AUTO) 8.3 K/uL (4.8-10.8)
[2020-01-12 09:41] LABS: ALBUMIN 2.7 g/dL (3.4-5.0); ANION GAP 13.4 (8-16); CARBON DIOXIDE 27.8 mmol/L (21-32); CREATININE 0.7 mg/dL (0.6-1.3); POTASSIUM 3.2 mmol/L (3.5-5.1); TOTAL BILIRUBIN 0.6 mg/dL (0.0-1.0)
[2020-01-12] MEDS ORDERED: CLINICAL MONITORING MC PRN (09:50)
[2020-01-12] MEDS ORDERED: REMDESIVIR (EUA) 200 MG in NACL 0.9% 100 ML IV SCH (11:00)
--- NOTE | 2020-01-12 11:56 | NUR ---
PATIENT RESTING IN BED IN SUPINE POSITION. O2 SAT 92% WITH 11L OXYMIZER. HR 88. ENCOURAGED PATIENT TO TAKE DEEP BREATHE. SAFETY MEASURES IN PLACE, WILL CONTINUE TO MONITOR.
--- NOTE | 2020-01-12 12:43 | NUR ---
SOCIAL WORK NOTE: Patient's Orientation Unable To Assess Information Provided By CLEMENT TERRELL - DAUGHTER Comments SW WAS UNABLE TO MEET PATIENT AT BEDSIDE DUE TO MEDICAL CONDITION. SW COMPLETED ASSESSMENT WITH PATIENT'S DAUGHTER. Continuous Weld Pipe Mill Supervisor, Realtionship and Phone Number CLEMENT TERRELL DAUGHTER [phone] LUIS TERRELL SON [phone] Healthcare Power of Grill Associate No Does Patient Have a POLST No Identifying Problems No Social Work Triggers Is A Social Work Consult Needed No Mandate Report Filed No Explanation Of Identifying Problems PATIENT IS A 69-YEAR-OLD MALE ADMITTED FOR COVID AND PNA. PATIENT HAS PMHX OF HYPERTENSION, HYPERLIPEDEMIA, AND TYPE 2 DIABETES. PATIENT'S DAUGHTER REPORTED NO MENTAL HEALTH OR SUBSTANCE ABUSE. Admitted From Home Pre-Admission Level Of Functioning Status Independent/Ambulatory Prior Resources/Services Used In Last 12 Months No Prior Resources Used Prior DME No Prior DME Used Dialysis Comments N/A Living Situation Lives With Family House Patient Had Caregiver No Home Support No Caregiver Issues Financial Issues No Known Financial Issue Referral To The Financial Counselor Needed No Factors/Needs No D/C Needs Identified Explanation And Or Other Factors Affecting/Possible DC Needs PATIENT'S DAUGHTER REPORTED THAT SHE WOULD PROVIDE TRANSPORTATION HOME. Pt/Rep Participated In Discharge Plan Yes Patient/Family Agress With Discharge Plan Yes Discharge Plan Comments TENTATIVE DISCHARGE PLAN IS FOR PATIENT TO RETURN HOME. DC Plan Status Initiated
[2020-01-12 16:00] VITALS: BP 117/64
--- NOTE | 2020-01-12 17:00 | NUR ---
10 UNITS OF HUMALOG GIVEN FOR BLOOD GLUCOSE LEVEL 398. SAFETY MEASURES IN PLACE, CALL LIGHT WITHIN REACH. O2 SAT 91% WITH 11L OXIMIZER. DECREASED TO 10L WITH OXIMIZER. O2 SAT 89-90%. ENCOURAGED PATIENT TO TAKE DEEP BREATH. VERBALIZED UNDERSTANDING AND ABLE TO TAKE DEEP BREATH. WILL CONTINUE TO MONITOR.
--- NOTE | 2020-01-12 18:15 | NUR ---
ZITHROMAX GIVEN VIA IVPB. PATIENT'S O2 SAT 88-90% WITH 10L OXIMIZER. ASSISTED PATIENT TO CHANGE TO SITTING POSITION, PATIENT IS READY TO TAKE DINNER. WILL CONTINUE TO MONITOR.
[2020-01-12] MEDS ORDERED: AZITHROMYCIN 500 MG in DEXTROSE 5% 250 ML IV SCH (18:30)
--- NOTE | 2020-01-12 19:40 | NUR ---
RECIEVED PT AAOX4 , NID - ON O2 AT 10LPM/ OXIMIZER . IV SITE INTACT AND PATENT . DENIES ANY PAIN . SAFETY MEASURES IN PLACE . PLAN OF CARE DISCUSSED BUT NEEDS RE INFORCEMENT DUE TO LANGUAGE BARRIER . FOR CONVALESCENT PLASMA - W/ CONSENT SIGNED - WILL FFF UP TO LAB . WILL CONT. TO MONITOR .
--- NOTE | 2020-01-12 19:40 | NUR ---
ENDORSED PATIENT TO HAND HIDE STRETCHER RN FOR CONTINUITY OF CARE. PATIENT IN STABLE CONDITION. O2 SAT 88-90% WITH 10L OXIMIZER.
--- NOTE | 2020-01-12 21:00 | NUR ---
FF UP THE AVAILABILITY OF FROZEN PLASMA - PER LAB THE FROZEN PLASMA IS NOT YET AVAILABLE .
[2020-01-12] MEDS: ATORVASTATIN 20 MG TAB PO SCH (21:21)
[2020-01-12] MEDS: ENOXAPARIN 80 MG/0.8 ML SYR SUBQ SCH (21:21)
[2020-01-13] VITALS: BP 112/67
--- NOTE | 2020-01-13 | NUR ---
MADE ROUNDS , NO S/SX OF ACUTE DISTRESS NOTED . WILL CONT. TO MONITOR . CALL LIGHT WITHIN REACH .
--- NOTE | 2020-01-13 02:00 | NUR ---
SLEEPING - CHEST RISE AND FALL EQUALLY . CALL LIGHT WITHIN REACH .
--- NOTE | 2020-01-13 04:00 | NUR ---
O2 SAT WNL . ASSISTED PT TO SIT UP ON BEDSIDE COMMODE . WILL CONT. TO MONITOR . CALL LIGHT WITHIN REACH .
[2020-01-13] MEDS: INSULIN LISPRO SLIDING SCALE 100 UNITS/ML VIAL SUBQ PRN ×4 (05:48→22:21)
[2020-01-13] MEDS: BLOOD GLUCOSE MONITORING 1 DEV DEV FS SCH ×4 (05:48→22:00)
--- NOTE | 2020-01-13 07:25 | NUR ---
RECEIVED ENDORSEMENT FROM MANAGER MARKETING COMMUNICATIONS, AWAKE ,ALERT, ORIENTEDX4, WITH O2 AT 10L/MIN VIA OXYMIZER, NON LABORED NOTED. WITH IV CANNULA G24 AT LEFT HAND ON SALINE LOCK NOTED. SKIN WARM TO TOUCH AND INTACT. SAFETY MEASURES IN PLACE AND CONTINUE MONITOR.
[2020-01-13 08:00] VITALS: BP 105/54
[2020-01-13 08:10] LABS: ALBUMIN 2.7 g/dL (3.4-5.0); ANION GAP 13.8 (8-16); CARBON DIOXIDE 26.9 mmol/L (21-32); CREATININE 0.7 mg/dL (0.6-1.3); POTASSIUM 3.7 mmol/L (3.5-5.1); TOTAL BILIRUBIN 0.6 mg/dL (0.0-1.0)
--- NOTE | 2020-01-13 09:05 | NUR ---
HAVING HER BREAKFAST, NOT IN DISTRESS NOTED.
--- NOTE | 2020-01-13 10:41 | NUR ---
FULLY AWAKE AND ALERT, DUE MEDICATION GIVEN ORALLY
[2020-01-13] MEDS: VENLAFAXINE XR 75 MG CAPER PO SCH (10:56)
[2020-01-13] MEDS: DOCUSATE SODIUM 100 MG GELCAP PO SCH (10:56)
[2020-01-13] MEDS: LOSARTAN 50 MG TAB PO SCH (10:57)
[2020-01-13] MEDS: hydroCHLOROthiazide 25 MG TAB PO SCH (10:57)
[2020-01-13] MEDS: ENOXAPARIN 80 MG/0.8 ML SYR SUBQ SCH ×2 (10:58→22:00)
[2020-01-13] MEDS: BENAZEPRIL 20 MG TAB PO SCH (10:58)
[2020-01-13] MEDS: REMDESIVIR (EUA) 100 MG in NACL 0.9% 100 ML IV SCH (11:18)
--- NOTE | 2020-01-13 11:21 | NUR ---
GLUCOSE-299, HUMALOG 6UNITS SUBQ PER SLIDING SCALE GIVEN.
[2020-01-13] MEDS: INSULIN LANTUS 100 UNITS/ML 10 ML VIAL SUBQ SCH (11:24)
--- NOTE | 2020-01-13 12:05 | NUR ---
BLANK BANK CONTACTED TO FOLLOW THE CONVALESCENT PLASMA, STILL NOT AVAILABLE Addendum: 01/13/20 at 1800 by Jett Ojeda RN BLOOD BANK CONTACTED TO FOLLOW THE CONVALESCENT PLASMA, STILL NOT AVAILABLE
--- NOTE | 2020-01-13 13:37 | NUR ---
DR. CASTILLO, ATTENDING PHYSICIAN, INFORMED IN THE UNIT THAT CONVALESCENT PLASMA NOT GIVEN, NOT AVAILABLE IN THE BLOOD BANK
--- NOTE | 2020-01-13 14:28 | NUR ---
BLOOD BANK CONTACTED AND SPOKE WITH MS VALDEZ, CONVALESCENT STILL NOT AVAILABLE
[2020-01-13 16:00] VITALS: BP 123/59
--- NOTE | 2020-01-13 17:01 | NUR ---
GLUCOSE-359, HUMALOG 10UNITS SUBQ PER SLIDING SCALE GIVEN, KEPT COMFORTABLE ON FOWLERS POSITION, INCENTIVE SPIROMETER INSTRUCTED, 5 BLOWS, VOLUME 100ML NOTED
--- NOTE | 2020-01-13 18:01 | NUR ---
BLOOD BANK CONTACTED TO FOLLOW THE CONVALESCENT PLASMA, STILL NOT AVAILABLE
--- NOTE | 2020-01-13 19:26 | NUR ---
ENDORSED TO NIGHT IN STABLE CONDITION FOR CONTINUITY OF CARE
--- NOTE | 2020-01-13 19:26 | NUR ---
RECEIVED PT AAOX4 , NID - O2 SAT WNL - ON O2 SAT MONITORNG . IV SITE INTACT AND PATENT . C/O OFMILD HEADACHE - WILL MEDICATE . SAFETY MEASURES IN PLACE - CALL LIGHT WITHIN REACH . W/ BEDSIDE COMMODE IN THE BEDSIDE . PLAN OF CARE DISCUSSED AND VERBALIZE UNDERSTANDING . WILL CONT. TO MONITOR . STILL FOR CONVALESCENT PLASMA - STILL NO AVAILABLE CONVALESCENT PLASMA .
[2020-01-13] MEDS: ZINC SULF 220 MG CAP PO SCH (22:00)
[2020-01-13] MEDS: ATORVASTATIN 20 MG TAB PO SCH (22:00)
[2020-01-13] MEDS: ASCORBIC ACID 500 MG TAB PO SCH (22:00)
[2020-01-13] MEDS: ACETAMINOPHEN 325 MG TAB PO PRN (22:39)
--- NOTE | 2020-01-13 22:39 | NUR ---
BLOOD SUGAR 429 - HUMALOG 10 U SQ GIVEN , C/O ROWLEY - WILL GIVE TYLENOL . WILL INFORM DR. MILLER ABOUT THIS .
--- NOTE | 2020-01-13 22:40 | NUR ---
INFORM DR. MILLER - ABOUT PT'S. BLD. SUGAR 429 - WILL WAIT HIS RESPONSE . PT IS ON DECADRON DAILY .
[2020-01-14] VITALS: BP 123/60
--- NOTE | 2020-01-14 01:47 | NUR ---
MADE ROUNDS , NO S/SX OF ACUTE DISTRESS NOTED .CALL LIGHT WITHIN REACH .
--- NOTE | 2020-01-14 04:00 | NUR ---
O2 SAT WNL . NO S/SX OF ACUTE DISTRESS .
[2020-01-14] MEDS: INSULIN LISPRO SLIDING SCALE 100 UNITS/ML VIAL SUBQ PRN ×4 (06:59→20:38)
[2020-01-14 07:01] LABS: BASOPHILS # (AUTO) 0.1 K/uL (0.00-0.22); BASOPHILS % (AUTO) 0.7 % (0.0-2.0); EOSINOPHILS % (AUTO) 0.2 % (0.0-4.0); HEMATOCRIT 43.1 % (36-48); HEMOGLOBIN 14.4 g/dL (12.0-16.0); LYMPHOCYTES # (AUTO) 0.9 K/uL (2.5-16.5); MEAN CORPUSCULAR HEMOGLOBIN 30 pg (27-31); MEAN CORPUSCULAR HGB CONC 33 g/dL (33-37); MEAN CORPUSCULAR VOLUME 88.9 fL (80-94); MONOCYTES # (AUTO) 0.5 K/uL (0.8-1.0); MONOCYTES % (AUTO) 5.5 % (1.7-9.3); NEUTROPHILS # (AUTO) 8.4 K/uL (1.8-7.7); PLATELET COUNT (AUTO) 586 K/uL (140-450); RED BLOOD CELL COUNT(AUTO) 4.85 MIL/uL (4.20-5.40); WHITE BLOOD COUNT (AUTO) 9.9 K/uL (4.8-10.8)
[2020-01-14] MEDS: BLOOD GLUCOSE MONITORING 1 DEV DEV FS SCH ×4 (07:01→20:35)
[2020-01-14 07:17] LABS: MAGNESIUM 2.1 mg/dL (1.8-2.4); PHOSPHORUS 4.5 mg/dL (2.5-4.9)
--- NOTE | 2020-01-14 07:20 | NUR ---
ENDORSED TO AM SHIFT - PT - STABLE
--- NOTE | 2020-01-14 07:20 | NUR ---
RECEIVED REPORT FROM PM RN FOR CONTINUITY OF CARE. PT IS STABLE. IN NO DISTRESS. WILL CONTINUE WITH POC.
[2020-01-14 07:34] LABS: ALBUMIN 2.7 g/dL (3.4-5.0); ANION GAP 12.9 (8-16); CARBON DIOXIDE 29.7 mmol/L (21-32); CREATININE 1.3 mg/dL (0.6-1.3); POTASSIUM 4.6 mmol/L (3.5-5.1); TOTAL BILIRUBIN 0.6 mg/dL (0.0-1.0)
[2020-01-14 08:00] VITALS: BP 121/57
[2020-01-14] MEDS: DOCUSATE SODIUM 100 MG GELCAP PO SCH (08:06)
[2020-01-14] MEDS: LOSARTAN 50 MG TAB PO SCH (08:07)
[2020-01-14] MEDS: VENLAFAXINE XR 75 MG CAPER PO SCH (08:07)
[2020-01-14] MEDS: ZINC SULF 220 MG CAP PO SCH ×2 (08:07→20:35)
[2020-01-14] MEDS: ASCORBIC ACID 500 MG TAB PO SCH ×2 (08:07→20:35)
[2020-01-14] MEDS: BENAZEPRIL 20 MG TAB PO SCH (08:08)
[2020-01-14] MEDS: hydroCHLOROthiazide 25 MG TAB PO SCH (08:08)
[2020-01-14] MEDS: ENOXAPARIN 80 MG/0.8 ML SYR SUBQ SCH ×2 (08:12→20:38)
--- NOTE | 2020-01-14 08:20 | NUR ---
PT IS AWAKE AND ALERT ORIENTED X 4 IN NO DISTRESS. RESTING WITH HOB SLIGHTLY ELEVATED, LUNG SOUNDS DIMINISHED, ABD IS SOFT AND NONTENDER WITH ACTIVE BS X 4 DENIES DIFFICULTY GOING. SKIN REMAINS INTACT. TOLERATED PO MEDICATION WITH NO ISSUES. HAS PATENT AND INTACT IV ACCESS TO LEFT HAND THAT IS SL. PT REMAINS ON 15L OXIMIZER AT 88-92%. CALL LIGHT WITHIN REACH, SAFETY MEASURES IN PLACE. WILL CONTINUE WITH POC.
[2020-01-14 08:37] LABS: LYMPHOCYTES % (AUTO) 8.9 % (20.5-51.1); NEUTROPHILS % (AUTO) 84.7 % (42.2-75.2)
[2020-01-14] MEDS ORDERED: INSULIN LANTUS 100 UNITS/ML 10 ML VIAL SUBQ SCH (09:00)
--- NOTE | 2020-01-14 10:30 | NUR ---
PT RESTING IN BED IN NO DISTRESS. CALL LIGHT WITHIN REACH, SPO2 90% ALL NEEDS MET.
[2020-01-14] MEDS: REMDESIVIR (EUA) 100 MG in NACL 0.9% 100 ML IV SCH (11:55)
--- NOTE | 2020-01-14 12:40 | NUR ---
PTS BS WAS 402 DR. CASTILLO NOTIFIED AND ORDERED 16 UNITS OF HUMALOG. PT ASYMPTOMATIC WILL RECHECK X 1 HR. CURRENTLY RECEIVING IVPB REMDESIVIR WITH NO ISSUES. FAMILY AT THE WINDOW PT IS IN [employer] COMMUNICATING WITH THEM OVER THE PHONE. ALL NEEDS MET AT THIS TIME.
--- NOTE | 2020-01-14 14:40 | NUR ---
PT ASSISTED BACK TO BED IN NO DISTRESS. CALL LIGHT WITHIN REACH. REMAINS ON 15L NRB. BS RECHECK WAS 522 DR. CASTILLO NOTIFED AND ORDER 12 UNITS OF HUMALOG. WILL MONITOR
[2020-01-14] MEDS ORDERED: INSULIN LISPRO 100 UNITS/ML VIAL SUBQ SCH (15:01)
[2020-01-14 16:00] VITALS: BP 130/70
--- NOTE | 2020-01-14 17:00 | NUR ---
BS 397 PT WAS GIVEN 10 UNITS OF HUMALOG COVERAGE AND LANTUS 10 UNITS PER MD ORDER. PT EDUCATED ON THE IMPORTANCE TO ADHERING TO DIET.
[2020-01-14] MEDS: INSULIN LANTUS 100 UNITS/ML 10 ML VIAL SUBQ SCH (17:13)
--- NOTE | 2020-01-14 18:50 | NUR ---
NEW IV ACCESS WAS STARTED DUE TO PLASMA ORDER THAT NEEDS BIGGER GAUGE. NEW IV SITE TO LEFT AC 20 G THAT IS NOW INTACT AND PATENT SL. ALL NEEDS ARE MET CALL LIGHT WITHIN REACH.
--- NOTE | 2020-01-14 19:22 | NUR ---
PT ENDORSED TO PM RN FOR CONTINUITY OF CARE. PT IS STABLE IN NO DISTRESS. SPO2 93% AT THIS TIME. LAB CALLED AT 1850 TO NOTIFY PLASMA WILL BE READY AFTER PAPERWORK, LAB SAID THEY WOULD CALL TO NOTIFY WHEN READY. ENDORSED TO PM RN.
--- NOTE | 2020-01-14 19:23 | NUR ---
RECEIVED BEDSIDE REPORT FROM DAY RN. PT IS AWAKE AND ALERT ORIENTED X4 IN NO DISTRESS AMBULATORY TO BEDSIDE COMMODE. RESPIRATIONS ARE EQUAL AND UNLABORED ON 15L VIA OXIMIZER SAT 88-90%. RESTING WITH HOB SLIGHTLY ELEVATED, LUNG SOUNDS DIMINISHED, ABD IS SOFT AND NONTENDER WITH ACTIVE BS X 4 DENIES DIFFICULTY GOING. SKIN INTACT. TOLERATED PO MEDICATION WITH NO ISSUES. HAS PATENT AND INTACT IV ACCESS TO LEFT HAND 24G THAT IS SL AND LAC 20G SL. ON DROPLET ISOLATION. POC DISCUSSED WITH PT. PENDING PLASMA FOR TONIGHT. CALL LIGHT WITHIN REACH, SAFETY MEASURES IN PLACE. WILL CONTINUE WITH POC.
[2020-01-14 20:00] VITALS: BP 116/70
[2020-01-14] MEDS: ATORVASTATIN 20 MG TAB PO SCH (20:35)
--- NOTE | 2020-01-14 21:05 | NUR ---
PLASMA STARTED AT THIS TIME. PRE VS: 97.0 80BPM 129/65 R 22 DENIES PAIN. POSSIBLE ADVERSE REACTIONS EXPLAINED TO PT. PT VERBALIZED UNDERSTANDING. CALL LIGHT IS WITHIN REACH. WILL MONITOR CLOSELY.
--- NOTE | 2020-01-14 22:08 | NUR ---
PLASMA COMPLETE AT THIS TIME. NO ADVERSE REACTION NOTED. NO INTERRUPTIONS. VSS. ALL NEEDS MET. CALL LIGHT IS WITHIN REACH.
--- NOTE | 2020-01-15 | NUR ---
CHECKED ON PT. PATIENT WITH OXIMIZER OFF SAT 69-71%. RR 25. CONSTANTLY CHECKING ON PT AND OXIMIZER OFF. EDUCATED PT ON IMPORTANCE OF KEEP OXIMIZER ON AND POSSIBLE RISK IF SHE DOES NOT. PT VERBALIZED UNDERSTANDING. O2 87% ON 15 OXIMIZER. CALL LIGHT IS WITHIN REACH. WILL CONTINUE TO MONITOR.
--- NOTE | 2020-01-15 00:26 | NUR ---
PER BLOOD BANK SECOND PLASMA NOT READY. F/U IN AM POSSIBLE SHIPMENT IN AM OR TOMORROW. WILL ENDORSE.
--- NOTE | 2020-01-15 02:04 | NUR ---
PT IS SLEEPING COMFORTABLY IN BED WITH EYES CLOSED. CHEST RISE AND FALL NOTED. CALL LIGHT IS WITHIN REACH.
[2020-01-15 04:00] VITALS: BP 118/67
--- NOTE | 2020-01-15 04:00 | NUR ---
VITAL SIGNS ARE WITHIN NORMAL LIMITS. ALL SAFETY MEASURES ARE IN PLACE. CALL LIGHT IS WITHIN REACH.
[2020-01-15] MEDS: BLOOD GLUCOSE MONITORING 1 DEV DEV FS SCH ×4 (06:13→22:03)
[2020-01-15] MEDS: INSULIN LISPRO SLIDING SCALE 100 UNITS/ML VIAL SUBQ PRN ×4 (06:13→22:05)
--- NOTE | 2020-01-15 06:13 | NUR ---
BLOOD SUGAR 204 ADMINISTERED INSULIN PER SLIDING SCALE. SNACK AT BEDSIDE. CALL LIGHT IS WITHIN REACH. WILL CONTINUE TO MONITOR.
--- NOTE | 2020-01-15 07:26 | NUR ---
GAVE BEDSIDE REPORT TO DAY RN. PT ENDORSED IN STABLE CONDITION.
[2020-01-15 08:00] VITALS: BP 135/63
[2020-01-15 08:38] LABS: BASOPHILS % (AUTO) 0.2 % (0.0-2.0); EOSINOPHILS # (AUTO) 0.2 K/uL (0-0.4); EOSINOPHILS % (AUTO) 1.3 % (0.0-4.0); HEMATOCRIT 42.4 % (36-48); HEMOGLOBIN 14.2 g/dL (12.0-16.0); LYMPHOCYTES % (AUTO) 14.1 % (20.5-51.1); MEAN CORPUSCULAR HEMOGLOBIN 30 pg (27-31); MEAN CORPUSCULAR HGB CONC 33 g/dL (33-37); MEAN CORPUSCULAR VOLUME 88.4 fL (80-94); MONOCYTES # (AUTO) 0.6 K/uL (0.8-1.0); MONOCYTES % (AUTO) 4.5 % (1.7-9.3); NEUTROPHILS # (AUTO) 11.5 K/uL (1.8-7.7); NEUTROPHILS % (AUTO) 79.9 % (42.2-75.2); PLATELET COUNT (AUTO) 602 K/uL (140-450); WHITE BLOOD COUNT (AUTO) 14.4 K/uL (4.8-10.8)
[2020-01-15 09:08] LABS: ALBUMIN 2.9 g/dL (3.4-5.0); ANION GAP 7.3 (8-16); CARBON DIOXIDE 31.5 mmol/L (21-32); CREATININE 0.9 mg/dL (0.6-1.3); POTASSIUM 3.8 mmol/L (3.5-5.1); TOTAL BILIRUBIN 0.6 mg/dL (0.0-1.0)
[2020-01-15] MEDS: VENLAFAXINE XR 75 MG CAPER PO SCH (09:57)
[2020-01-15] MEDS: DOCUSATE SODIUM 100 MG GELCAP PO SCH (09:57)
[2020-01-15] MEDS: LOSARTAN 50 MG TAB PO SCH (09:57)
[2020-01-15] MEDS: hydroCHLOROthiazide 25 MG TAB PO SCH (09:58)
[2020-01-15] MEDS: ASCORBIC ACID 500 MG TAB PO SCH ×2 (09:58→22:06)
[2020-01-15] MEDS: BENAZEPRIL 20 MG TAB PO SCH (09:58)
[2020-01-15] MEDS: ZINC SULF 220 MG CAP PO SCH ×2 (09:58→22:06)
--- NOTE | 2020-01-15 09:58 | NUR ---
SCHEDULED MEDICATIONS GIVEN, EDUCATION PROVIDED. LOVENOX NOT AVAILABLE ON BOTH SIDES OF OMNICELL. REACHED OUT PHARMACY WILL REFILL LATER. WILL ADMINISTER WHEN AVAILABLE. PATIENT RESTING IN BED. O2 SAT 90% WITH 15L VIA OXIMIZER. HR 85. ENCOURAGED PATIENT TO TAKE DEEP BREATH AND RELAXATION. SAFETY MEASURES IN PLACE, CALL LIGHT WITHIN REACH. WILL CONTINUE TO MONITOR.
[2020-01-15] MEDS: INSULIN LANTUS 100 UNITS/ML 10 ML VIAL SUBQ SCH ×2 (09:59→17:00)
[2020-01-15 10:24] LABS: MAGNESIUM 2.1 mg/dL (1.8-2.4); PHOSPHORUS 3.5 mg/dL (2.5-4.9)
--- NOTE | 2020-01-15 11:30 | NUR ---
pt fio2 decreased to 8l oxyimizer o2 sat 89% rt logan was called to place pt back on 15l due to desating
--- NOTE | 2020-01-15 11:54 | NUR ---
ACCU CHECK DONE, BLOOD GLUCOSE LEVEL 308. CALLED PHARMACY INFORMED THAT LOVENOX AND REMDESIVIR STILL NOT BEEN REFILLED AND DELIVERED, SN WAS INFORMED THAT STILL PREPARING. HUMALOG WILL BE DELIVER TO THE FLOOR LATER. WILL ADMINISTER MEDICATION WHENEVER AVAILABLE.
[2020-01-15] MEDS: ENOXAPARIN 80 MG/0.8 ML SYR SUBQ SCH ×2 (12:38→22:06)
[2020-01-15] MEDS: REMDESIVIR (EUA) 100 MG in NACL 0.9% 100 ML IV SCH (12:40)
--- NOTE | 2020-01-15 12:40 | NUR ---
8 UNITS OF HUMALOG GIVEN FOR BLOOD GLUCOSE LEVEL 308. LOVENOX GIVEN. REMDESIVIR GIVEN VIA IVPB. EDUCATION PROVIDED. PATIENT CHANGED HER POSITION AND SIT AT THE SIDE OF THE BED. HER O2 SAT DESATURATE TO LOWER 77% WITH 8L OXIMIZER. ASSISTED PATIENT TO SIT BACK TO THE BED. O2 SAT INCREASED TO 80%. RT CALLED. WILL FOLLOW UP.
--- NOTE | 2020-01-15 14:26 | NUR ---
PATIENT SITTING AT THE SIDE OF THE BED. O2 SAT 91% WITH 14L VIA OXIMIZER. HR 83. SAFETY MEASURES IN PLACE, CALL LIGHT WITHIN REACH. WILL CONTINUE TO MONITOR.
[2020-01-15 16:00] VITALS: BP 117/68
--- NOTE | 2020-01-15 16:24 | NUR ---
01/15/20 RD INITIAL ASSESSMENT COMPLETED PLEASE REFER TO NUTRITION ASSESSMENT UNDER CARE ACTIVITY FOR ESTIMATED NUTRITIONAL NEEDS. 1. CONTINUE MECHANICAL SOFT CCHO 60GM DIET TOLERATED 2. CONTINUE GLUCERNA TID 3. ASSIST WITH MEALS AND ENCOURAGE PO INTAKE 4. RD TO FOLLOW-UP 3-5 DAYS, MODERATE RISK CARLA RAE RD
--- NOTE | 2020-01-15 17:00 | NUR ---
10 UNITS OF HUMALOG GIVEN FOR BLOOD GLUCOSE LEVEL 399, 10 UNITS OF LANTUS GIVEN SCHEDULED. INSTRUCTED REGARDING DIABETIC DIET AND MANAGEMENT. PATIENT'S O2 SAT 89-91% WITH 14L OXIMIZER. RESTING IN BED. ENCOURAGED PATIENT TO TAKE DEEP BREATH AND USE THE INCENTIVE SPIROMETER. VERBALIZED UNDERSTANDING. WILL CONTINUE TO FOLLOW UP.
--- NOTE | 2020-01-15 19:25 | NUR ---
RECEIVED PT AAOX4 , NID - O2 SAT WNL , ON O2 AT 15LPM/ OXIMIZER , IV SITES INTACT AND PATENT . SAFETY MEASURES IN PLACE . PLAN OF CARE DISCUSSED AND VERBALIZE UNDERSTANDING . CALL LIGHT WITHIN REACH . C/O ROWLEY - WILL MEDICATE.WILL CONT. TO MONITOR
--- NOTE | 2020-01-15 19:25 | NUR ---
ENDORSED PATIENT TO REAL PROPERTY EVALUATOR RN FOR CONTINUITY OF CARE. PATIENT IN STABLE CONDITION. O2 SAT 94% WITH 14L OXIMIZER.
[2020-01-15 20:00] VITALS: BP 105/58
[2020-01-15] MEDS: ATORVASTATIN 20 MG TAB PO SCH (22:06)
--- NOTE | 2020-01-16 | NUR ---
MADE ROUNDS , NO S/SX OF ACUTE DISTRESS NOTED
[2020-01-16 04:00] VITALS: BP 87/39
--- NOTE | 2020-01-16 04:00 | NUR ---
MADE ROUNDS , NO S/SX OF ACUTE DISTRESS NOTED
[2020-01-16] MEDS: BLOOD GLUCOSE MONITORING 1 DEV DEV FS SCH ×4 (05:40→21:47)
--- NOTE | 2020-01-16 06:00 | NUR ---
O2 SAT WNL . NO COMPLAIN MADE .
[2020-01-16] MEDS: INSULIN LISPRO SLIDING SCALE 100 UNITS/ML VIAL SUBQ PRN ×4 (06:29→21:50)
--- NOTE | 2020-01-16 07:33 | NUR ---
ENDORSED TO AM SHIFT - PT - STABLE - SENT TEXT MSG TO DR. CASTILLO CLARIFYING HOW MANY CONVALESCENT PLASMA HE ORDERED - TEXT BACK SHOWED TO NURSE KULDIP .
--- NOTE | 2020-01-16 08:00 | NUR ---
RECEIVED REPORT FROM PROGRAM MANAGER SLP FOR CONTINUITY OF CARE. PATIENT ALERT AWAKE ORIENTED X4, NOT IN ANY DISTRESS NOTED. DENIES PAIN. ON O2 OXIMIZER 15L, [id number]%. WITH IVF TO TKO INFUSING WELL. INITIAL ASSESSMENT INITIATED. NEEDS ATTENDED. WILL CONTINUE TO MONITOR.
[2020-01-16 08:14] LABS: BASOPHILS # (AUTO) 0.1 K/uL (0.00-0.22); BASOPHILS % (AUTO) 0.4 % (0.0-2.0); EOSINOPHILS # (AUTO) 0.3 K/uL (0-0.4); EOSINOPHILS % (AUTO) 2.1 % (0.0-4.0); HEMATOCRIT 41.5 % (36-48); HEMOGLOBIN 13.6 g/dL (12.0-16.0); LYMPHOCYTES # (AUTO) 2.5 K/uL (2.5-16.5); MEAN CORPUSCULAR HEMOGLOBIN 29 pg (27-31); MEAN CORPUSCULAR HGB CONC 33 g/dL (33-37); MONOCYTES # (AUTO) 0.7 K/uL (0.8-1.0); MONOCYTES % (AUTO) 5.2 % (1.7-9.3); NEUTROPHILS # (AUTO) 9.5 K/uL (1.8-7.7); NEUTROPHILS % (AUTO) 73.3 % (42.2-75.2); PLATELET COUNT (AUTO) 622 K/uL (140-450); RED BLOOD CELL COUNT(AUTO) 4.66 MIL/uL (4.20-5.40); WHITE BLOOD COUNT (AUTO) 12.9 K/uL (4.8-10.8)
[2020-01-16 08:43] LABS: ALBUMIN 2.7 g/dL (3.4-5.0); ANION GAP 11.8 (8-16); CARBON DIOXIDE 30.4 mmol/L (21-32); CREATININE 0.8 mg/dL (0.6-1.3); POTASSIUM 3.2 mmol/L (3.5-5.1); TOTAL BILIRUBIN 0.7 mg/dL (0.0-1.0)
[2020-01-16 08:47] LABS: MAGNESIUM 1.9 mg/dL (1.8-2.4); PHOSPHORUS 3.4 mg/dL (2.5-4.9)
[2020-01-16] MEDS: LOSARTAN 50 MG TAB PO SCH (09:00)
[2020-01-16] MEDS: hydroCHLOROthiazide 25 MG TAB PO SCH (09:00)
[2020-01-16] MEDS: ASCORBIC ACID 500 MG TAB PO SCH ×2 (09:00→21:32)
[2020-01-16] MEDS: DOCUSATE SODIUM 100 MG GELCAP PO SCH (09:00)
[2020-01-16] MEDS: ZINC SULF 220 MG CAP PO SCH ×2 (09:00→21:32)
[2020-01-16] MEDS: INSULIN LANTUS 100 UNITS/ML 10 ML VIAL SUBQ SCH ×2 (09:00→17:07)
[2020-01-16] MEDS: ENOXAPARIN 80 MG/0.8 ML SYR SUBQ SCH ×2 (09:00→21:33)
[2020-01-16] MEDS: VENLAFAXINE XR 75 MG CAPER PO SCH (09:00)
[2020-01-16] MEDS: BENAZEPRIL 20 MG TAB PO SCH (09:00)
--- NOTE | 2020-01-16 09:30 | NUR ---
DUE MEDICATIONS GIVEN AND TOLERATED WELL.
[2020-01-16] MEDS ORDERED: MAG SULF 2000 MG/WATER PREMIX 50 ML IV SCH (11:00)
[2020-01-16] MEDS: POTASSIUM CHLORIDE 10 MEQ TABER PO SCH ×2 (12:48→16:51)
[2020-01-16] MEDS: REMDESIVIR (EUA) 100 MG in NACL 0.9% 100 ML IV SCH (12:49)
--- NOTE | 2020-01-16 13:00 | NUR ---
MAG GRIFFIN AND K ROHINI GIVEN ORDER.
[2020-01-16 16:00] VITALS: BP 107/58
--- NOTE | 2020-01-16 19:00 | NUR ---
REPORT GIVEN TO KERI FOR CONTINUITY OF CARE. PATIENT IN STABLE CONDITION.
--- NOTE | 2020-01-16 19:25 | NUR ---
RECEIVED REPORT FROM AM RN FOR CONTINUITY OF CARE. PATIENT IA AAOX4, BEDREST, ON OXIMIZER 15 L, NOT IN ANY DISTRESS NOTED. DENIES PAIN. IVF TO TKO INFUSING WELL ON LEFT HAND GAUGE 24. COVID (+). SAFETY AND ISOLATION PRECAUTION ARE IN PLACED. WILL CONTINUE TO MONITOR.
[2020-01-16 20:00] VITALS: BP 114/74
[2020-01-16] MEDS: ATORVASTATIN 20 MG TAB PO SCH (21:32)
--- NOTE | 2020-01-16 21:32 | NUR ---
BS 368, ADMINISTERED 10U HUMOLOG
--- NOTE | 2020-01-16 21:32 | NUR ---
ADMINISTERED PRESCRIBED MEDICATIONS
[2020-01-16] MEDS: ACETAMINOPHEN 325 MG TAB PO PRN (21:53)
--- NOTE | 2020-01-16 21:53 | NUR ---
ADMINISTERED TYLENOL 650MG PO FOR HEADACHE
--- NOTE | 2020-01-16 22:10 | NUR ---
PT SLEEPS COMFORTABLY. NO S/S OF RESPIRATORY DISTRESS AT THIS TIME
--- NOTE | 2020-01-17 00:28 | NUR ---
CALLED [facility] AND SPOKE WITH DR CHAMBERLAIN REGARDING I MORE UNIT CONVALESCENT PLASMA WAS ORDERED. ACCORDING TO THE LAB, THE ORDER IS ALREADY (ORDERED ON 01/12/20), GIVEN 1 UNIT ON 01/14/20, AND STILL 1 MORE UNIT OF CONVALESCENT PLASMA LEFT. DR CHAMBERLAIN STATED TO HOLD THE 1 UNIT CONVALESCENT PLASMA TONIGHT AND ASK DR MILLER IN THE MORNING
--- NOTE | 2020-01-17 00:45 | NUR ---
PT SLEEPS COMFORTABLY. NO S/S OF RESPIRATORY DISTRESS AT THIS TIME
--- NOTE | 2020-01-17 02:36 | NUR ---
PT SLEEPS COMFORTABLY. NO S/S OF RESPIRATORY DISTRESS AT THIS TIME
[2020-01-17 04:00] VITALS: BP 120/68
--- NOTE | 2020-01-17 04:51 | NUR ---
PT SLEEPS COMFORTABLY. NO S/S OF RESPIRATORY DISTRESS AT THIS TIME
[2020-01-17] MEDS: BLOOD GLUCOSE MONITORING 1 DEV DEV FS SCH ×4 (06:22→21:14)
[2020-01-17] MEDS: INSULIN LISPRO SLIDING SCALE 100 UNITS/ML VIAL SUBQ PRN ×4 (06:25→21:27)
--- NOTE | 2020-01-17 06:31 | NUR ---
BS 174, 2 UNITS HUMOLOG ADMINISTERED
--- NOTE | 2020-01-17 07:04 | NUR ---
WILL ENDORSE TO DAY SHIFT RN
--- NOTE | 2020-01-17 07:09 | NUR ---
RECEIVED REPORT FROM NIGHTSHIFT NURSE. PT RESTING IN BED. ABLE TO MAKE NEEDS KNOWN. RESPIRATIONS EVEN AND UNLABORED WITH NO SOB OR RESPIRATORY DISTRESS. SKIN WARM AND DRY TO TOUCH. IV SITE IN L HAND 24G IS CLEAN, DRY, AND INTACT. SAFETY MEASURES IN PLACE. WILL CONTINUE TO MONITOR
[2020-01-17 08:00] VITALS: BP 101/57
[2020-01-17 08:30] LABS: MAGNESIUM 2.4 mg/dL (1.8-2.4); PHOSPHORUS 3.3 mg/dL (2.5-4.9)
[2020-01-17 08:31] LABS: ANION GAP 10.8 (8-16); CARBON DIOXIDE 31.2 mmol/L (21-32); CREATININE 0.7 mg/dL (0.6-1.3)
[2020-01-17 08:34] LABS: BASOPHILS # (AUTO) 0.1 K/uL (0.00-0.22); BASOPHILS % (AUTO) 0.9 % (0.0-2.0); EOSINOPHILS # (AUTO) 0.2 K/uL (0-0.4); EOSINOPHILS % (AUTO) 1.3 % (0.0-4.0); HEMATOCRIT 43.6 % (36-48); HEMOGLOBIN 14.4 g/dL (12.0-16.0); LYMPHOCYTES # (AUTO) 2.4 K/uL (2.5-16.5); LYMPHOCYTES % (AUTO) 19.4 % (20.5-51.1); MEAN CORPUSCULAR HEMOGLOBIN 30 pg (27-31); MEAN CORPUSCULAR HGB CONC 33 g/dL (33-37); MEAN CORPUSCULAR VOLUME 89.1 fL (80-94); MONOCYTES # (AUTO) 0.9 K/uL (0.8-1.0); MONOCYTES % (AUTO) 6.8 % (1.7-9.3); NEUTROPHILS % (AUTO) 71.6 % (42.2-75.2); PLATELET COUNT (AUTO) 595 K/uL (140-450); RED BLOOD CELL COUNT(AUTO) 4.89 MIL/uL (4.20-5.40); WHITE BLOOD COUNT (AUTO) 12.6 K/uL (4.8-10.8)
[2020-01-17] MEDS: BENAZEPRIL 20 MG TAB PO SCH (09:00)
[2020-01-17] MEDS: VENLAFAXINE XR 75 MG CAPER PO SCH (09:00)
[2020-01-17] MEDS: LOSARTAN 50 MG TAB PO SCH (09:00)
[2020-01-17] MEDS: DOCUSATE SODIUM 100 MG GELCAP PO SCH (09:00)
[2020-01-17] MEDS: ENOXAPARIN 80 MG/0.8 ML SYR SUBQ SCH ×2 (09:00→21:25)
[2020-01-17] MEDS: ASCORBIC ACID 500 MG TAB PO SCH ×2 (09:00→21:15)
[2020-01-17] MEDS: INSULIN LANTUS 100 UNITS/ML 10 ML VIAL SUBQ SCH ×2 (09:00→18:00)
[2020-01-17] MEDS: ZINC SULF 220 MG CAP PO SCH ×2 (09:00→21:15)
--- NOTE | 2020-01-17 09:30 | NUR ---
ADMINISTERED SCHED MED PRESCRIBED PER MD ORDER. PT TOLERATED WELL. MEDICATION EDUCATION PERFORMED. PT VERBALIZED UNDERSTANDING. SAFETY MEASURES IN PLACE. WILL CONTINUE TO MONITOR
[2020-01-17] MEDS: DEXAMETHASONE 4 MG/ML VIAL IVP SCH (11:25)
--- NOTE | 2020-01-17 11:30 | NUR ---
ADMINISTERED SCHED MED PRESCRIBED PER MD ORDER. PT TOLERATED WELL. PT BLOOD SUGAR IS 339. ADMINISTER PRN INSULIN PRESCRIBED PER MD ORDER WITH NEXT MEAL. WILL CONTINUE TO MONITOR
--- NOTE | 2020-01-17 12:30 | NUR ---
ADMINISTERED SCHED MED PRESCRIBED PER MD ORDER. PT TOLERATED WELL. MEDICATION EDUCATION PERFORMED. PT VERBALIZED UNDERSTANDING. SAFETY MEASURES IN PLACE. WILL CONTINUE TO MONITOR
--- NOTE | 2020-01-17 14:15 | NUR ---
PT RESTING IN BED. ABLE TO MAKE NEEDS KNOWN. RESPIRATIONS EVEN AND UNLABORED WITH NO SOB OR RESPIRATORY DISTRESS. SKIN WARM AND DRY TO TOUCH. SAFETY MEASURES IN PLACE. WILL CONTINUE TO MONITOR
--- NOTE | 2020-01-17 15:04 | NUR ---
PT COMPLAINING OF SOB. PT O2 AT 67%. CALLED RT. INCREASED PT O2 FROM 15L OXYMIZER TO 15L NON REBREATHER MASK PER RT. AWARE. SAFETY MEASURES IN PLACE. WILL CONTINUE TO MONITOR
[2020-01-17 16:00] VITALS: BP 100/57
--- NOTE | 2020-01-17 16:30 | NUR ---
PT BLOOD SUGAR IS 301 PRN INSULIN WILL BE ADMINISTERED PRESCRIBED PER MD ORDER WITH NEXT MEAL. SAFETY MEASURES IN PLACE. WILL CONTINUE TO MONITOR
--- NOTE | 2020-01-17 18:13 | NUR ---
ADMINISTERED SCHED MED PRESCRIBED PER MD ORDER. PT TOLERATED WELL. MEDICATION EDUCATION PERFORMED. PT VERBALIZED UNDERSTANDING. SAFETY MEASURES IN PLACE. WILL CONTINUE TO MONITOR
--- NOTE | 2020-01-17 18:14 | NUR ---
ADMINISTERED SCHED MED PRESCRIBED PER MD ORDER. PT TOLERATED WELL. MEDICATION EDUCATION PERFORMED. PT VERBALIZED UNDERSTANDING. SAFETY MEASURES IN PLACE. WILL CONTINUE TO MONITOR
--- NOTE | 2020-01-17 19:20 | NUR ---
ENDORSED TO NIGHTSHIFT NURSE FOR CONTINUITY OF CARE. PT IS STABLE
--- NOTE | 2020-01-17 19:25 | NUR ---
RECEIVED PATIENT FROM AM SHIFT NURSE FOR CONTINUITY OF CARE. AAOX4. RESPIRATIONS EVEN, UNLABORED. CONTINUES ON O2 15L VIA NRB, O2SAT 98%. SKIN WARM, DRY. SALINE LOCK TO LEFT HAND 24G PATENT/INTACT. NO C/O PAIN. NO S/S ACUTE DISTRESS. ABDOMEN SOFT, NONTENDER, NONDISTENDED. BOWEL SOUNDS ACTIVE X4 QUADRANTS. PATIENT CONTINENT OF B/B. PLAN OF CARE DISCUSSED. CALL LIGHT WITHIN REACH. SAFETY PRECAUTIONS IN PLACE. ISOLATION PRECAUTIONS OBSERVED BY ALL STAFF.
--- NOTE | 2020-01-17 21:00 | NUR ---
PATIENT RESTING COMFORTABLY IN BED. NO C/O PAIN. NO S/S ACUTE DISTRESS. CALL LIGHT WITHIN REACH. SAFETY PRECAUTIONS IN PLACE. ISOLATION PRECAUTIONS OBSERVED BY ALL STAFF.
[2020-01-17] MEDS: ATORVASTATIN 20 MG TAB PO SCH (21:14)
--- NOTE | 2020-01-17 23:15 | NUR ---
PATIENT IS WATCHING TV IN BED. NO S/S ACUTE DISTRESS. NO C/O PAIN. CALL LIGHT WITHIN REACH. SAFETY PRECAUTIONS IN PLACE. ISOLATION PRECAUTIONS OBSERVED BY ALL STAFF.
--- NOTE | 2020-01-18 01:47 | NUR ---
MADE ROUNDS. PATIENT IS SLEEPING WELL. NO S/S ACUTE DISTRESS. CALL LIGHT WITHIN REACH. ISOLATION PRECAUTIONS OBSERVED BY ALL STAFF.
--- NOTE | 2020-01-18 03:46 | NUR ---
PATIENT IS ASLEEP. NO S/S ACUTE DISTRESS. CALL LIGHT WITHIN REACH. ISOLATION PRECAUTIONS OBSERVED BY ALL STAFF.
[2020-01-18 04:00] VITALS: BP 114/56
--- NOTE | 2020-01-18 05:04 | NUR ---
PATIENT ASLEEP IN BED. NO S/S ACUTE DISTRESS. CALL LIGHT WITHIN REACH. SAFETY PRECAUTIONS IN PLACE. ISOLATION PRECAUTIONS OBSERVED BY ALL STAFF.
[2020-01-18] MEDS: BLOOD GLUCOSE MONITORING 1 DEV DEV FS SCH ×4 (07:00→21:05)
--- NOTE | 2020-01-18 07:10 | NUR ---
ENDORSED TO AM SHIFT NURSE FOR CONTINUITY OF CARE.
--- NOTE | 2020-01-18 07:15 | NUR ---
RECEIVED POT FROM MACHINE SPLITTER NURSE, PT IS AWAKE AND ALERT AND ON NRB MASK AT 15 O2, SATURATING AT 95%, DSAFETY AND FALL PRECAUTIONS IN PLACE, BEDSIDE COMMODE BESIDE THE BED, IV LINE NOTED ON THE LFA G.24 ON SALINE LOCK, PT DENIES PAIN AND NO SIGN OF DISTRESS NOTED, WILL CONTINUE TO MONITOR PT.
[2020-01-18 08:58] LABS: BASOPHILS # (AUTO) 0.1 K/uL (0.00-0.22); BASOPHILS % (AUTO) 0.7 % (0.0-2.0); EOSINOPHILS # (AUTO) 0.1 K/uL (0-0.4); EOSINOPHILS % (AUTO) 1.1 % (0.0-4.0); HEMATOCRIT 42.3 % (36-48); HEMOGLOBIN 13.9 g/dL (12.0-16.0); MEAN CORPUSCULAR HEMOGLOBIN 30 pg (27-31); MEAN CORPUSCULAR HGB CONC 33 g/dL (33-37); MEAN CORPUSCULAR VOLUME 90.6 fL (80-94); MONOCYTES # (AUTO) 0.6 K/uL (0.8-1.0); NEUTROPHILS # (AUTO) 7.9 K/uL (1.8-7.7); NEUTROPHILS % (AUTO) 73.2 % (42.2-75.2); PLATELET COUNT (AUTO) 602 K/uL (140-450); RED BLOOD CELL COUNT(AUTO) 4.67 MIL/uL (4.20-5.40); RED CELL DISTRIBUTION WIDTH 14.1 % (11.6-13.7); WHITE BLOOD COUNT (AUTO) 10.7 K/uL (4.8-10.8)
[2020-01-18 09:26] LABS: CARBON DIOXIDE 32.2 mmol/L (21-32); CREATININE 0.6 mg/dL (0.6-1.3); POTASSIUM 4.2 mmol/L (3.5-5.1)
[2020-01-18] MEDS: ASCORBIC ACID 500 MG TAB PO SCH ×2 (09:51→20:59)
[2020-01-18] MEDS: ZINC SULF 220 MG CAP PO SCH ×2 (09:53→20:59)
[2020-01-18] MEDS: DOCUSATE SODIUM 100 MG GELCAP PO SCH (09:53)
[2020-01-18] MEDS: BENAZEPRIL 20 MG TAB PO SCH (09:54)
[2020-01-18] MEDS: VENLAFAXINE XR 75 MG CAPER PO SCH (09:54)
[2020-01-18 09:55] LABS: PHOSPHORUS 3.9 mg/dL (2.5-4.9)
[2020-01-18] MEDS: LOSARTAN 50 MG TAB PO SCH (09:55)
[2020-01-18] MEDS: DEXAMETHASONE 4 MG/ML VIAL IVP SCH (09:55)
[2020-01-18] MEDS: INSULIN LANTUS 100 UNITS/ML 10 ML VIAL SUBQ SCH ×2 (09:57→17:59)
[2020-01-18] MEDS: ENOXAPARIN 80 MG/0.8 ML SYR SUBQ SCH ×2 (09:59→21:05)
--- NOTE | 2020-01-18 09:59 | NUR ---
PT WAS GIVEN THE SCHEDULED AM MEDICATIONS NOW, PT TOLERATED IT, WILL MONITOR PT.
[2020-01-18] MEDS: INSULIN LISPRO SLIDING SCALE 100 UNITS/ML VIAL SUBQ PRN ×3 (11:48→22:22)
--- NOTE | 2020-01-18 11:48 | NUR ---
PT WAS GIVEN INSULIN 2 UNITS ON THE ABDOMEN FOR BLOOD GLUCOSE OF 198, WILL MONITOR PT.
[2020-01-18 14:16] LABS: MAGNESIUM 2.1 mg/dL (1.8-2.4)
[2020-01-18 16:00] VITALS: BP 100/51
--- NOTE | 2020-01-18 18:07 | NUR ---
ADMINISTERED HUMALOG 14 UNITS PER MD ORDER , QUADEER, FOR BS 469. WILL CONTINUE TO MONITOR.
--- NOTE | 2020-01-18 19:20 | NUR ---
RECEIVED PATIENT FROM DAY SHIFT NURSE FOR CONTINUITY OF CARE. AAOX4. RESPIRATIONS EVEN, UNLABORED. CONTINUES ON O2 15L VIA NRB, O2SAT 98%. SKIN WARM, DRY. LEFT HAND 24G PATENT/INTACT. NO C/O PAIN. NO S/S RESPIRATORY DISTRESS PLAN OF CARE DISCUSSED. BED IN LOW POSITION AND CALL LIGHT WITHIN REACH. SAFETY AND ISOLATION PRECAUTIONS IN PLACE.
--- NOTE | 2020-01-18 19:40 | NUR ---
ENDORSED PT TO BILLING ANALYST NURSE FOR CONTINUITY OF CARE.
[2020-01-18] MEDS: ATORVASTATIN 20 MG TAB PO SCH (20:59)
--- NOTE | 2020-01-18 21:05 | NUR ---
BLOOD GLUCOSE CHECK IS 458. NOTIFIED MD GLUCOSE LEVEL. GAVE 14 UNITS OF INSULIN SQ PER MD REQUEST.
--- NOTE | 2020-01-18 21:05 | NUR ---
ALL SCHEDULED MEDS WERE GIVEN. NO DISTRESS NOTED. WILL CONTINUE TO MONITOR.
[2020-01-19] VITALS: BP 115/61
--- NOTE | 2020-01-19 00:35 | NUR ---
CHECKED ON PATIENT. PATIENT ASLEEP AND 02 SATURATION IS AT 93%. NO S/S OF RESPIRATORY DISTRESS. WILL CONTINUE TO MONITOR
--- NOTE | 2020-01-19 03:13 | NUR ---
CHECKED ON PATIENT. PATIENT IS ASLEEP. RESPIRATIONS EVEN AND UNLABORED. ON 15 L NRB W/ 02 SATURATION AT 91%. NO DISTRESS NOTED. WILL CONTINUE TO MONITOR.
[2020-01-19 04:00] VITALS: BP 115/54
--- NOTE | 2020-01-19 06:32 | NUR ---
BLOOD GLUCOSE CHECK IS 153. INSULIN COVERAGE NEEDED. ADMINISTERED 2 UNITS OF INSULIN SQ.
[2020-01-19] MEDS: BLOOD GLUCOSE MONITORING 1 DEV DEV FS SCH ×4 (06:34→21:18)
[2020-01-19] MEDS: INSULIN LISPRO SLIDING SCALE 100 UNITS/ML VIAL SUBQ PRN ×4 (06:34→21:20)
--- NOTE | 2020-01-19 07:26 | NUR ---
ENDORSED TO AM SHIFT NURSE FOR CONTINUITY OF CARE. PT IS STABLE.
[2020-01-19 08:00] VITALS: BP 102/74
[2020-01-19 08:43] LABS: BASOPHILS % (AUTO) 0.4 % (0.0-2.0); EOSINOPHILS # (AUTO) 0.1 K/uL (0-0.4); EOSINOPHILS % (AUTO) 0.4 % (0.0-4.0); HEMATOCRIT 41.2 % (36-48); HEMOGLOBIN 13.4 g/dL (12.0-16.0); LYMPHOCYTES # (AUTO) 2.1 K/uL (2.5-16.5); LYMPHOCYTES % (AUTO) 17.4 % (20.5-51.1); MEAN CORPUSCULAR HEMOGLOBIN 29 pg (27-31); MEAN CORPUSCULAR HGB CONC 33 g/dL (33-37); MEAN CORPUSCULAR VOLUME 89.3 fL (80-94); MONOCYTES # (AUTO) 0.8 K/uL (0.8-1.0); MONOCYTES % (AUTO) 6.8 % (1.7-9.3); NEUTROPHILS # (AUTO) 9.2 K/uL (1.8-7.7); PLATELET COUNT (AUTO) 524 K/uL (140-450); RED BLOOD CELL COUNT(AUTO) 4.61 MIL/uL (4.20-5.40); RED CELL DISTRIBUTION WIDTH 13.9 % (11.6-13.7); WHITE BLOOD COUNT (AUTO) 12.2 K/uL (4.8-10.8)
[2020-01-19] MEDS: LOSARTAN 50 MG TAB PO SCH (09:00)
[2020-01-19 09:10] LABS: MAGNESIUM 1.9 mg/dL (1.8-2.4); PHOSPHORUS 3.2 mg/dL (2.5-4.9)
[2020-01-19] MEDS: ENOXAPARIN 80 MG/0.8 ML SYR SUBQ SCH ×2 (09:52→21:00)
[2020-01-19] MEDS: INSULIN LANTUS 100 UNITS/ML 10 ML VIAL SUBQ SCH ×2 (09:52→17:30)
[2020-01-19] MEDS: DOCUSATE SODIUM 100 MG GELCAP PO SCH (09:55)
[2020-01-19] MEDS: VENLAFAXINE XR 75 MG CAPER PO SCH (09:55)
[2020-01-19] MEDS: BENAZEPRIL 20 MG TAB PO SCH (09:56)
[2020-01-19] MEDS: ZINC SULF 220 MG CAP PO SCH ×2 (09:56→21:00)
[2020-01-19] MEDS: ASCORBIC ACID 500 MG TAB PO SCH ×2 (09:56→20:59)
[2020-01-19] MEDS: DEXAMETHASONE 4 MG/ML VIAL IVP SCH (09:57)
--- NOTE | 2020-01-19 10:11 | NUR ---
ADMINISTERED SCHED MED PRESCRIBED PER MD ORDER. PT TOLERATED WELL. MEDICATION EDUCATION EDUCATION PERFORMED. PT VERBALIZED UNDERSTANDING. SAFETY MEASURES IN PLACE. WILL CONTINUE TO MONITOR
[2020-01-19 10:14] LABS: ANION GAP 7.9 (8-16); CARBON DIOXIDE 33.7 mmol/L (21-32); CREATININE 0.7 mg/dL (0.6-1.3); POTASSIUM 4.6 mmol/L (3.5-5.1)
--- NOTE | 2020-01-19 11:15 | NUR ---
WEANING PATIENT OFF OF OXYGEN. PT AT 15L NONREBREATHER MASK DECREASED TO 12L NONREBREATHER MASK SATURATING AT 96%. SAFETY MEASURES IN PLACE. WILL CONTINUE TO MONITOR
--- NOTE | 2020-01-19 11:30 | NUR ---
PT BLOOD SUGAR IS 213. PRN INSULIN TO BE ADMINISTERED PRESCRIBED PER MD ORDER WITH NEXT MEAL. WILL CONTINUE TO MONITOR
--- NOTE | 2020-01-19 12:00 | NUR ---
WEANED PT TO 10L NRM. PT SATURATION AT 95%. NO SIGNS OF DISTRESS NOTED. WILL CONTINUE TO MONITOR
--- NOTE | 2020-01-19 12:22 | NUR ---
ADMINISTERED SCHED MED PRESCRIBED PER MD ORDER. PT TOLERATED WELL. MEDICATION EDUCATION EDUCATION PERFORMED. PT VERBALIZED UNDERSTANDING. SAFETY MEASURES IN PLACE. WILL CONTINUE TO MONITOR
[2020-01-19 16:00] VITALS: BP 98/64
--- NOTE | 2020-01-19 16:30 | NUR ---
PT BLOOD SUGAR IS 416. PRN INSULIN TO BE ADMINISTERED PRESCRIBED PER MD ORDER. WILL CONTINUE TO MONITOR Addendum: 01/19/20 at 1738 by Liliana Jensen RN [facility] FOR INSULIN UNITS. AWAITING CALL
--- NOTE | 2020-01-19 17:37 | NUR ---
ADMINISTERED SCHED MED PRESCRIBED PER MD ORDER. PT TOLERATED WELL. MEDICATION EDUCATION EDUCATION PERFORMED. PT VERBALIZED UNDERSTANDING. SAFETY MEASURES IN PLACE. WILL CONTINUE TO MONITOR
--- NOTE | 2020-01-19 19:25 | NUR ---
ENDORSED TO NIGHTSHIFT NURSE FOR CONTINUITY OF CARE. PT IS STABLE
--- NOTE | 2020-01-19 19:26 | NUR ---
RECEIVED REPORT FROM DAY SHIFT NURSE. PT IN BED RESTING. PT AAOX4, USES BEDSIDE COMMODE, AND ABLE TO MAKE NEEDS KNOWN. PT ON O2 6LPM/NRB MASK. PT TOLERATING WELL, PT NOT IN DISTRESS. ABDOMEN IS SOFT AND NON-TENDER, ACTIVE BOWEL SOUNDS NOTED. SKIN IS WARM, DRY, AND INTACT. PT WITH IV ACCESS ON LEFT HAND G24 PATENT AND INTACT, SALINE LOCKED. PT DENIES ANY PAIN OR DISCOMFORT AT THIS TIME. NO REQUESTS MADE. SAFETY MEASURES IN PLACE. CALL LIGHT WITHIN REACH. WILL CONTINUE TO MONITOR.
[2020-01-19 20:00] VITALS: BP 105/57
[2020-01-19] MEDS: ATORVASTATIN 20 MG TAB PO SCH (21:00)
--- NOTE | 2020-01-19 21:20 | NUR ---
VS STABLE. SCHEDULED MEDS GIVEN ORDERED. NRB MASK IN PLACE. PT NOT IN DISTRESS. DENIES ANY PAIN OR DISCOMFORT AT THIS TIME. SAFETY MEASURES IN PLACE. CALL LIGHT WITHIN REACH. WILL CONTINUE TO MONITOR.
--- NOTE | 2020-01-19 22:22 | NUR ---
PT ASSISTED TO COMMODE SAFELY. PT TOLERATED TRANSFER. NO S/SX OF DISTRESS NOTED, PT KEPT COMFORTABLE. SAFETY MEASURES IN PLACE. CALL LIGHT WITHIN REACH. WILL CONTINUE TO MONITOR.
--- NOTE | 2020-01-20 00:16 | NUR ---
PT IN BED WATCHING TV. NRB MASK IN PLACE. PT NOT IN DISTRESS. NO S/SX OF PAIN OR DISCOMFORT NOTED. NO REQUESTS MADE. PT KEPT COMFORTABLE. SAFETY MEASURES IN PLACE. CALL LIGHT WITHIN REACH. WILL CONTINUE TO MONITOR.
--- NOTE | 2020-01-20 02:02 | NUR ---
PT ASLEEP. NON-REBREATHER MASK IN PLACE. PT NOT IN DISTRESS. CURRENT O2 SAT 98%. VISIBLE CHEST RISE AND FALL NOTED. PT KEPT COMFORTABLE. SAFETY MEASURES IN PLACE. CALL LIGHT WITHIN REACH. WILL CONTINUE TO MONITOR.
[2020-01-20 04:00] VITALS: BP 112/61
--- NOTE | 2020-01-20 04:17 | NUR ---
VS STABLE. PT IN BED WITH HOB ELEVATED. NON-REBREATHER MASK IN PLACE. PT NOT IN DISTRESS. NO REQUESTS MADE. PT KEPT COMFORTABLE. SAFETY MEASURES IN PLACE. CALL LIGHT WITHIN REACH. WILL CONTINUE TO MONITOR.
--- NOTE | 2020-01-20 06:05 | NUR ---
PT WITH NASAL BLEEDING. ICE PACK PLACED ON NOSE. INSTRUCTED PT TO APPLY PRESSURE. WILL CONTINUE TO MONITOR.
[2020-01-20] MEDS: BLOOD GLUCOSE MONITORING 1 DEV DEV FS SCH ×4 (06:48→21:27)
[2020-01-20] MEDS: INSULIN LISPRO SLIDING SCALE 100 UNITS/ML VIAL SUBQ PRN ×4 (06:49→21:28)
--- NOTE | 2020-01-20 06:49 | NUR ---
BLOOD SUGAR 169. INSULIN COVERAGE GIVEN ORDERED. NRB IN PLACE. PT NOT IN DISTRESS. DENIES ANY PAIN OR DISCOMFORT WILL CONTINUE TO MONITOR.
--- NOTE | 2020-01-20 07:31 | NUR ---
ENDORSED TO DAY SHIFT NURSE FOR CONTINUITY OF CARE
--- NOTE | 2020-01-20 07:32 | NUR ---
RECEIVED REPORT FROM NIGHT NURSE PATIENT IS AAOX4 ON 3LPM NON REBREATHER MASK, SKIN INTACT, USES BEDSIDE COMMODE, IV INTACT AND PATENT ON LEFT HAND. SAFETY MEASURES IN PLACE AND CALL LIGHT WITHIN REACH. WILL CONTINUE TO MONITOR.
--- NOTE | 2020-01-20 09:00 | NUR ---
MEDICATION DUE GIVEN CHECK VITAL SIGNS PRIOR TO MEDICATION BP 126/68 NV 85.
[2020-01-20 09:33] LABS: MAGNESIUM 1.7 mg/dL (1.8-2.4); PHOSPHORUS 2.7 mg/dL (2.5-4.9)
[2020-01-20 09:42] LABS: ANION GAP 7.6 (8-16); CARBON DIOXIDE 32.2 mmol/L (21-32); CREATININE 0.6 mg/dL (0.6-1.3); POTASSIUM 3.8 mmol/L (3.5-5.1)
[2020-01-20] MEDS: DOCUSATE SODIUM 100 MG GELCAP PO SCH (09:47)
[2020-01-20] MEDS: VENLAFAXINE XR 75 MG CAPER PO SCH (09:48)
[2020-01-20] MEDS: LOSARTAN 50 MG TAB PO SCH (09:48)
[2020-01-20] MEDS: ZINC SULF 220 MG CAP PO SCH ×2 (09:48→21:17)
[2020-01-20] MEDS: ASCORBIC ACID 500 MG TAB PO SCH ×2 (09:49→21:17)
[2020-01-20] MEDS: DEXAMETHASONE 4 MG/ML VIAL IVP SCH (09:49)
[2020-01-20] MEDS: BENAZEPRIL 20 MG TAB PO SCH (09:49)
[2020-01-20] MEDS: ENOXAPARIN 80 MG/0.8 ML SYR SUBQ SCH ×2 (09:55→21:18)
[2020-01-20] MEDS: INSULIN LANTUS 100 UNITS/ML 10 ML VIAL SUBQ SCH ×2 (09:55→16:51)
[2020-01-20 10:00] LABS: BASOPHILS # (AUTO) 0.1 K/uL (0.00-0.22); BASOPHILS % (AUTO) 0.5 % (0.0-2.0); EOSINOPHILS # (AUTO) 0.1 K/uL (0-0.4); EOSINOPHILS % (AUTO) 0.8 % (0.0-4.0); HEMATOCRIT 38.4 % (36-48); HEMOGLOBIN 12.5 g/dL (12.0-16.0); LYMPHOCYTES # (AUTO) 2.5 K/uL (2.5-16.5); LYMPHOCYTES % (AUTO) 21.9 % (20.5-51.1); MEAN CORPUSCULAR HEMOGLOBIN 29 pg (27-31); MEAN CORPUSCULAR HGB CONC 33 g/dL (33-37); MEAN CORPUSCULAR VOLUME 89.6 fL (80-94); MONOCYTES # (AUTO) 0.8 K/uL (0.8-1.0); MONOCYTES % (AUTO) 7.3 % (1.7-9.3); NEUTROPHILS % (AUTO) 69.5 % (42.2-75.2); PLATELET COUNT (AUTO) 491 K/uL (140-450); RED BLOOD CELL COUNT(AUTO) 4.29 MIL/uL (4.20-5.40); RED CELL DISTRIBUTION WIDTH 13.9 % (11.6-13.7); WHITE BLOOD COUNT (AUTO) 11.5 K/uL (4.8-10.8)
--- NOTE | 2020-01-20 11:30 | NUR ---
BLOOD SUGAR AT 159 MG/DL INSULIN COVERAGE GIVEN
[2020-01-20 12:00] VITALS: BP 126/68
--- NOTE | 2020-01-20 16:30 | NUR ---
BLOOD SUGAR AT 317 MG/DL INSULIN GIVEN AND INSULIN LANTHUS GIVEN AT 20 UNITS.
--- NOTE | 2020-01-20 16:31 | NUR ---
01/20/20 RD FOLLOW UP COMPLETED. PLEASE REFER TO NUTRITION ASSESSMENT UNDER CARE ACTIVITY FOR ESTIMATED NUTRITIONAL NEEDS. 1. CONTINUE MECHANICAL SOFT CCHO 60GM DIET TOLERATED 2. CONTINUE GLUCERNA TID 3. ASSIST WITH MEALS AND ENCOURAGE PO INTAKE 4. RD TO FOLLOW-UP 3-5 DAYS, MODERATE RISK FARNAZ NELSON, RD
[2020-01-20] MEDS: MAGNESIUM OXIDE 400 MG TAB PO PRN (17:22)
--- NOTE | 2020-01-20 19:54 | NUR ---
ENDORSED TO NIGHT NURSE FOR CONTINUITY OF CARE.PT IS STABLE
--- NOTE | 2020-01-20 19:55 | NUR ---
RECEIVED REPORT FROM DAY SHIFT NURSE. PT IN BED RESTING. PT AAOX4, USES BEDSIDE COMMODE, AND ABLE TO MAKE NEEDS KNOWN. PT ON O2 3LPM/NRB MASK. PT TOLERATING WELL, PT NOT IN DISTRESS. ABDOMEN IS SOFT AND NON-TENDER, ACTIVE BOWEL SOUNDS NOTED. SKIN IS WARM, DRY, AND INTACT. PT WITH IV ACCESS ON LEFT HAND G24 PATENT AND INTACT, SALINE LOCKED. PT DENIES ANY PAIN OR DISCOMFORT AT THIS TIME. NO REQUESTS MADE. SAFETY MEASURES IN PLACE. CALL LIGHT WITHIN REACH. WILL CONTINUE TO MONITOR.
[2020-01-20 20:00] VITALS: BP 95/53
[2020-01-20] MEDS: ATORVASTATIN 20 MG TAB PO SCH (21:17)
--- NOTE | 2020-01-20 21:28 | NUR ---
VS STABLE. SCHEDULED MEDS GIVEN ORDERED. NRB MASK IN PLACE. PT NOT IN DISTRESS. DENIES ANY PAIN OR DISCOMFORT. NO REQUESTS MADE. SAFETY MEASURES IN PLACE. CALL LIGHT WITHIN REACH. WILL CONTINUE TO MONITOR
--- NOTE | 2020-01-20 22:14 | NUR ---
PT SWITCHED FROM 3LPM/NRB TO 6LPM/NC. PT TOLERATING WELL. DENIES ANY SOB OR DISTRESS. WILL CONTINUE TO MONITOR.
--- NOTE | 2020-01-21 00:11 | NUR ---
PT ASLEEP WITH O2 IN PLACE. PT NOT IN DISTRESS. VISIBLE CHEST RISE AND FALL NOTED. O2 WEANED TO 4LPM/NC. SAFETY MEASURES IN PLACE. CALL LIGHT WITHIN REACH. WILL CONTINUE TO MONITOR.
--- NOTE | 2020-01-21 02:03 | NUR ---
PT ASLEEP. PT TOLERATING O2 4LPM/NC. NO S/X OF DISTRESS NOTED. VISIBLE CHEST RISE AND FALL NOTED. PT KEPT COMFORTABLE. SAFETY MEASURES IN PLACE. WILL CONTINUE TO MONITOR.
[2020-01-21 04:00] VITALS: BP 103/58
--- NOTE | 2020-01-21 04:12 | NUR ---
VS STABLE. PT TOLERATING O2 4LPM/NC WELL. PT NOT IN DISTRESS, DENIES ANY DISCOMFORT. O2 PLACED ON 3LPM/NC . WILL CONTINUE TO MONITOR.
[2020-01-21] MEDS: BLOOD GLUCOSE MONITORING 1 DEV DEV FS SCH ×3 (06:35→16:57)
--- NOTE | 2020-01-21 06:36 | NUR ---
BLOOD SUGAR 81. NO INSULIN COVERAGE NEEDED. PT TOLERATING O2 3LPM/NC. WILL CONTINUE TO MONITOR.
--- NOTE | 2020-01-21 07:27 | NUR ---
ENDORSED TO DAY SHIFT NURSE FOR CONTINUITY OF CARE
--- NOTE | 2020-01-21 07:28 | NUR ---
RECEIVED ENDORSEMENT FROM DISK RECOATER, AWAKE,ALERT, ORIENTEDX3, WITH O2 AT 4L/MIN VIA NC,SATURATING AT 97%,NON LABORED NOTED. WITH IV CANNULA G24 AT LEFT HAND ON SALINE LOCK NOTED. SAFETY MEASURES IN PLACE AND CONTINUE MONITOR
[2020-01-21] MEDS: INSULIN LANTUS 100 UNITS/ML 10 ML VIAL SUBQ SCH (09:00)
[2020-01-21] MEDS: DOCUSATE SODIUM 100 MG GELCAP PO SCH (09:18)
[2020-01-21] MEDS: DEXAMETHASONE 4 MG/ML VIAL IVP SCH (09:18)
[2020-01-21] MEDS: VENLAFAXINE XR 75 MG CAPER PO SCH (09:19)
[2020-01-21] MEDS: ASCORBIC ACID 500 MG TAB PO SCH (09:19)
[2020-01-21] MEDS: LOSARTAN 50 MG TAB PO SCH (09:19)
[2020-01-21] MEDS: BENAZEPRIL 20 MG TAB PO SCH (09:21)
[2020-01-21] MEDS: ZINC SULF 220 MG CAP PO SCH (09:21)
[2020-01-21] MEDS: ENOXAPARIN 80 MG/0.8 ML SYR SUBQ SCH (09:22)
--- NOTE | 2020-01-21 09:39 | NUR ---
GLUCOSE-72, LANTUS NON ADMINISTER. BREAKFAST SERVED AND DUE MEDICATION GIVEN
[2020-01-21 12:00] VITALS: BP 112/59
--- NOTE | 2020-01-21 12:02 | NUR ---
VITAL SIGNS TAKEN AND RECORDED, STABLE. GLUCOSE-276, HUMALOG 6UNITS SUBQ GIVEN PER SLIDING SCALE. LUNCH SERVED
[2020-01-21] MEDS: MAGNESIUM OXIDE 400 MG TAB PO PRN (12:17)
[2020-01-21] MEDS: INSULIN LISPRO SLIDING SCALE 100 UNITS/ML VIAL SUBQ PRN ×2 (12:23→17:02)
[2020-01-21] MEDS ORDERED: APIX5TAB4 PO (13:26)
--- NOTE | 2020-01-21 14:09 | NUR ---
DR. NAVA MADE ROUNDS AND ORDER FOR DISCHARGE TODAY WITH O2 AT HOME, PER THE PATIENT SHE HAD A STANDBY OXYGEN AT HOME.
[2020-01-21 16:30] VITALS: BP 118/69
--- NOTE | 2020-01-21 16:45 | NUR ---
THE DAUGHTER CALLED AND MADE AWARE THAT PATIENT WILL DISCHARGE TODAY SHE WILL PICK AT 5PM
--- NOTE | 2020-01-21 16:58 | NUR ---
GLUCOSE-374, HUMALOG 10UNIT SUBQ GIVEN PER SLIDING SCALE.PREPARED FOR DISCHARGED
--- NOTE | 2020-01-21 17:09 | NUR ---
DR. ESTELA NAVA CONTACTED, PATIENT WANTS WORK EXCUSE AND ACCORDING TO DR. NAVA, JAN [id number]
--- NOTE | 2020-01-21 17:28 | NUR ---
DISCHARGED IN STABLE CONDITION , BREATHING SPONTANEOUSLY AT ROOM AIR PER WHEELCHAIR ACCOMPANIED TO HOSPITAL LOBBY AND PICKED BY DAUGHTER, INSTRUCTED TO FOLLOW UP AT PCP AFTER 3-5DAYS, VERBALIZED UNDERSTANDING
== END 2020-01-21 17:46 | disposition home or self-care (01) | DRG 177 ==
LOC: MED 17:48 → MTU 21:39 → MED 22:19 → MTU 23:23
PROVIDERS: ADMIT Hospitalist; ATTEND Hospitalist
PROC: XW033E5 Introduction of Remdesivir Anti-infective into Peripheral Vein, Percutaneous Approach, New Technology Group 5 (ICD-10-PCS; 2020-01-12)
PROC: XW13325 Transfusion of Convalescent Plasma (Nonautologous) into Peripheral Vein, Percutaneous Approach, New Technology Group 5 (ICD-10-PCS; principal; 2020-01-14)
DX: U07.1 COVID-19 (principal); J12.89 Other viral pneumonia; J96.01 Acute respiratory failure with hypoxia; E87.2 Acidosis; E11.9 Type 2 diabetes mellitus without complications; E78.5 Hyperlipidemia, unspecified; F32.9 Major depressive disorder, single episode, unspecified; F41.9 Anxiety disorder, unspecified; I10 Essential (primary) hypertension; Z88.8 Allergy status to other drugs, medicaments and biological substances; Z79.84 Long term (current) use of oral hypoglycemic drugs; Z79.899 Other long term (current) drug therapy
CPT/HCPCS: 36415; 36600; 71045; 80048; 80053; 81001; 82550; 82728; 82803; 82948; 83036; 83605; 83615; 83735; 83880; 84100; 84484; 85025; 85379; 85384; 85610; 85730; 86140; 86886; 86900; 86901; 87040; 87081; 87086; 93005; 96365; 96368; 96375; 99291; J0456; J0696; J1100; J1650; J1815; J3475; J7030; J7060; P9017

== ENCOUNTER 2021-01-28 05:34 | Emergency (ER) | payer OTHER, SELFPAY ==
[~2021-01-28] VITALS: Ht 160 cm; Wt 83.0 kg
[2021-01-28 05:34] VITALS: BP 90/69
[~2021-01-28 05:34] MED LIST changes: +APIX5TAB4 PO; -ASPI81CT95 PO; -CARV6.252 PO; -CHOL200072 PO; -CIPR500T4 PO; -GLYB5TAB9 PO; +INSU-1165 SQ; +INSU100I7 SQ; -LISI2.5T12 PO; -METF100028 PO; -METR500T1 PO; +PHE25S RC; -PIOG30TA51 PO; -QUIN20TA PO; -VENL75TA17 PO
[2021-01-28 07:40] VITALS: BP 101/51
== END 2021-01-28 07:43 | disposition home or self-care (01) ==
LOC: MED 05:34
DX: I83.893 Varicose veins of bilateral lower extremities with other complications (principal); E11.9 Type 2 diabetes mellitus without complications; I10 Essential (primary) hypertension; Z88.6 Allergy status to analgesic agent; Z88.8 Allergy status to other drugs, medicaments and biological substances
CPT/HCPCS: 99283

== ENCOUNTER 2021-05-06 20:48 | Observation (INO) | payer OTHER, SELFPAY ==
[~2021-05-06] VITALS: Ht 160 cm; Wt 80.7 kg
[2021-05-06 20:57] VITALS: BP 136/60
--- NOTE | 2021-05-06 21:06 | NUR ---
PT AMBULATORY TO BED 07 ACCOMPANIED BY SON.
--- NOTE | 2021-05-06 21:35 | NUR ---
Dr. Muñiz examining patient.
[2021-05-06] MEDS ORDERED: NACL 0.9% 1,000 ML IV ONE ×2 (21:40→22:55)
--- NOTE | 2021-05-06 21:42 | NUR ---
X-Ray at bedside.
[2021-05-06 21:57] LABS: BASOPHILS # (AUTO) 0.1 K/uL (0.00-0.22); BASOPHILS % (AUTO) 0.6 % (0.0-2.0); EOSINOPHILS # (AUTO) 0.2 K/uL (0-0.4); EOSINOPHILS % (AUTO) 1.2 % (0.0-4.0); HEMATOCRIT 34.1 % (36-48); HEMOGLOBIN 10.8 g/dL (12.0-16.0); LYMPHOCYTES # (AUTO) 2.3 K/uL (2.5-16.5); LYMPHOCYTES % (AUTO) 13.7 % (20.5-51.1); MEAN CORPUSCULAR HEMOGLOBIN 24 pg (27-31); MEAN CORPUSCULAR HGB CONC 32 g/dL (33-37); MEAN CORPUSCULAR VOLUME 75.9 fL (80-94); MONOCYTES # (AUTO) 0.9 K/uL (0.8-1.0); MONOCYTES % (AUTO) 5.5 % (1.7-9.3); NEUTROPHILS # (AUTO) 13.1 K/uL (1.8-7.7); PLATELET COUNT (AUTO) 404 K/uL (140-450); RED BLOOD CELL COUNT(AUTO) 4.49 MIL/uL (4.20-5.40); RED CELL DISTRIBUTION WIDTH 24.3 % (11.6-13.7); WHITE BLOOD COUNT (AUTO) 16.6 K/uL (4.8-10.8)
[2021-05-06 22:26] LABS: ALBUMIN 3.5 g/dL (3.4-5.0); ANION GAP 13.4 (8-16); CARBON DIOXIDE 30.6 mmol/L (21-32); CREATININE 0.6 mg/dL (0.6-1.3); TOTAL BILIRUBIN 0.5 mg/dL (0.0-1.0)
[2021-05-06 22:58] LABS: APPEARANCE,URINE CLEAR (CLEAR); BILIRUBIN,URINE NEGATIVE (NEGATIVE); BLOOD, URINE NEGATIVE (NEGATIVE); COLOR,URINE YELLOW (YELLOW); LEUKOCYTE ESTERASE ,URINE NEGATIVE (NEGATIVE); NITRITE, URINE NEGATIVE (NEGATIVE); UGLUCOSE 3+ (NEGATIVE)
[2021-05-06] MEDS ORDERED: cefTRIAXone 1,000 MG VIAL ONE (22:58)
[2021-05-06] MEDS ORDERED: KETOROLAC 30 MG/ML VIAL IVP ONE (23:20)
[2021-05-06] MEDS ORDERED: LORazepam 2 MG/ML VIAL IVP ONE (23:40)
--- NOTE | 2021-05-07 00:06 | NUR ---
COVID RUDY SWAB DONE AND SENT TO LAB.
--- NOTE | 2021-05-07 00:06 | NUR ---
PT AND HER SON INFORMED PT WILL BE ADMITTED. BOTH AGREED ADMISSION TO THE HOSPITAL. PT'S SON LEFT ER WITH PT'S BELONGINGS.
--- NOTE | 2021-05-07 00:24 | NUR ---
PT SPO2 DECREASED TO 92% W/ 19 RESPIRATIONS AFTER ATIVAN ADMINISTRATION. PT IS AROUSABLE. 2L OF O2 NASAL CANNULA APPLIED. WILL CONTINUE TO MONITOR.
[2021-05-07] MEDS ORDERED: ACETAMINOPHEN 325 MG TAB PO PRN (01:50)
[2021-05-07] MEDS ORDERED: MAG SULF 2000 MG/WATER PREMIX 50 ML IV PRN (01:50)
[2021-05-07] MEDS ORDERED: MORPHINE SULFATE 4 MG/ML SYR IVP PRN (01:50)
[2021-05-07] MEDS ORDERED: HYDROcodone/APAP 5/325 MG 1 TAB TAB PO PRN (01:50)
[2021-05-07] MEDS ORDERED: KCL 20 MEQ/WATER INJ PREMIX 200 ML IV PRN (01:50)
[2021-05-07] MEDS ORDERED: POTASSIUM CHLORIDE 10 MEQ TABER PO PRN (01:50)
[2021-05-07] MEDS ORDERED: MAGNESIUM OXIDE 400 MG TAB PO PRN (01:50)
[2021-05-07] MEDS ORDERED: ONDANSETRON 4 MG/2 ML VIAL IVP PRN (01:50)
--- NOTE | 2021-05-07 02:13 | NUR ---
Patient will be admitted to care of MAXINE GEORGE. Admited to MED/SURG. Will go to [id number]. Belongings list completed. Report to ZOLTAN.
[2021-05-07 02:15] VITALS: BP 130/68
--- NOTE | 2021-05-07 02:15 | NUR ---
PT TRANSPORTED VIA GURNEY. PT IS SLEEPING ON 2L NC. PT HAD LEFT AC 18 GAUGE WITH NS RUNNING 80. CLEAR LUNG SOUNDS. NO HEART MURMURS. ACTIVE BOWEL SOUNDS ALL QUADRANTS. PT IS AMBULATORY WITH STEADY GAIT. 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 COMMUNICATION BOARD UPDATED. CALL LIGHT WITHIN REACH. ALL SAFETY MEASURES TAKEN. WILL CONTINUE TO MONITOR THE PT.
[2021-05-07] MEDS: NACL 0.9% 1,000 ML IV SCH ×2 (02:30→14:42)
[2021-05-07 04:00] VITALS: BP 104/55
[2021-05-07] MEDS ORDERED: DEXTROSE 50% 50 ML SYR IVP PRN (04:25)
--- NOTE | 2021-05-07 04:30 | NUR ---
PT IS SLEEPING IN BED COMFORTABLY. PT IS NOT IN ANY DISTRESS. BREATHING RHYTHMIC AND UNLABORED. IVF RUNNING PER MD ORDER. CALL LIGHT WITHIN REACH. ALL SAFETY MEASURES TAKEN. WILL CONTINUE TO MONITOR THE PT.
[2021-05-07] MEDS: BLOOD GLUCOSE MONITORING 1 DEV DEV FS SCH ×2 (06:36→12:04)
[2021-05-07] MEDS: INSULIN LISPRO SLIDING SCALE 100 UNITS/ML VIAL SUBQ PRN ×2 (06:36→12:09)
--- NOTE | 2021-05-07 07:29 | NUR ---
ENDORSED PT TO DAY SHIFT RN FOR CONTINUITY OF CARE. PT IS STABLE.
--- NOTE | 2021-05-07 07:33 | NUR ---
RECEIVED REPORT FROM PROCESSING TECH NURSE FOR CONTINUITY OF CARE. PT IN BED SLEEPING AT THIS TIME. RESPIRATIONS ARE EVEN AND UNLABORED. PT ON 2L 02 VIA NC. NO SIGNS OF DISTRESS NOTED. PT IS ALERT AND ORIENTED X4, AND ABLE TO VERBALIZE NEEDS. PT HAS FULL ROM TO UPPER AND LOWER EXTREMITIES. ABD IS NONTENDER, NONDISTENDED WITH BOWEL SOUNDS PRESENT. SKIN IS WARM, DRY, AND INTACT. IV TO L AC 18G. PER PROCESSING TECH, NO EPISODES OF FEVER THROUGHOUT SHIFT. WILL CONTINUE TO MONITOR. CALL LIGHT WITHIN REACH. ALL SAFETY MEASURES IN PLACE.
[2021-05-07 08:00] VITALS: BP 140/71
--- NOTE | 2021-05-07 08:21 | NUR ---
PATIENT HAS BEEN SCREENED AND CATEGORIZED LOW NUTRITION RISK. PATIENT WILL BE SEEN WITHIN 7 DAYS OF ADMISSION. 05/13/[address]
--- NOTE | 2021-05-07 08:50 | NUR ---
ADMINISTERED ALL SCHEDULED MEDICATIONS. EDUCATED PT REGARDING MEDS ADMINISTERED. PT VERBALIZED UNDERSTANDING. WILL CONTINUE TO MONITOR.
[2021-05-07] MEDS ORDERED: DOCUSATE SODIUM 100 MG GELCAP PO SCH (09:00)
--- NOTE | 2021-05-07 11:20 | NUR ---
DC PLANNING: THE PATIENT ADMITTED THROUGH THE ER WITH C/O BODY ACHES FEVER AND CHILLS. H/O HTN, DM 2 AND HYPERLIPIDEMIA. WBC'S 16.6, COVID RAPID NEGATIVE, BS 215. STARTED EMPIRICALLY ON ROCEPHIN IV, WAITING FOR CBC RESULTS FOR TODAY. KHALIF SPOKE WITH KHALIF RAYMUNDO AT [facility], CLINICAL REVIEW GIVEN, IN AGREEMENT WITH HAVING THE PATIENT STAY OBSERVATION STATUS UNTIL TODAY'S WBC'S ARE IN SYSTEM. CM WILL FOLLOW.
--- NOTE | 2021-05-07 12:16 | NUR ---
ASSISTED WITH AMBULATING PT TO USE RESTROOM. PT TOLERATED WELL. WILL CONTINUE TO MONITOR.
[2021-05-07 14:17] LABS: BASOPHILS % (AUTO) 0.5 % (0.0-2.0); EOSINOPHILS # (AUTO) 0.3 K/uL (0-0.4); EOSINOPHILS % (AUTO) 2.8 % (0.0-4.0); HEMATOCRIT 32.2 % (36-48); HEMOGLOBIN 10.1 g/dL (12.0-16.0); LYMPHOCYTES # (AUTO) 2.4 K/uL (2.5-16.5); LYMPHOCYTES % (AUTO) 25.7 % (20.5-51.1); MEAN CORPUSCULAR HEMOGLOBIN 24 pg (27-31); MEAN CORPUSCULAR HGB CONC 31 g/dL (33-37); MEAN CORPUSCULAR VOLUME 76.7 fL (80-94); MONOCYTES # (AUTO) 0.5 K/uL (0.8-1.0); MONOCYTES % (AUTO) 5.9 % (1.7-9.3); NEUTROPHILS % (AUTO) 65.1 % (42.2-75.2); PLATELET COUNT (AUTO) 349 K/uL (140-450); RED BLOOD CELL COUNT(AUTO) 4.19 MIL/uL (4.20-5.40); RED CELL DISTRIBUTION WIDTH 24.9 % (11.6-13.7); WHITE BLOOD COUNT (AUTO) 9.2 K/uL (4.8-10.8)
[2021-05-07 14:32] LABS: ALBUMIN 2.7 g/dL (3.4-5.0); ANION GAP 8.8 (8-16); CARBON DIOXIDE 30.9 mmol/L (21-32); CREATININE 0.5 mg/dL (0.6-1.3); POTASSIUM 3.7 mmol/L (3.5-5.1); TOTAL BILIRUBIN 0.5 mg/dL (0.0-1.0)
--- NOTE | 2021-05-07 16:10 | NUR ---
PT DISCHARGED HOME. WENT OVER DISCHARGE PAPERWORK. ANSWERED ALL QUESTIONS. PT SIGNED ALL PAPERWORK. REMOVED IV. IV CATHETER INTACT. ALL BELONGINGS TAKEN UPON DISCHARGE.
== END 2021-05-07 16:15 | disposition home or self-care (01) ==
LOC: MED 20:48 → MMU 05-07 01:45 → MTU 05-07 01:57
PROVIDERS: ADMIT Hospitalist; ATTEND Hospitalist
DX: R50.9 Fever, unspecified (principal); Z20.822 Contact with and (suspected) exposure to COVID-19; B34.9 Viral infection, unspecified; E11.9 Type 2 diabetes mellitus without complications; R65.10 Systemic inflammatory response syndrome (SIRS) of non-infectious origin without acute organ dysfunction; R53.1 Weakness; I10 Essential (primary) hypertension; E78.5 Hyperlipidemia, unspecified; Z79.899 Other long term (current) drug therapy
CPT/HCPCS: 36415; 71045; 80053; 81003; 82948; 83036; 83605; 84443; 85025; 87040; 87081; 87086; 87426; 96361; 96365; 96372; 96375; 99285; G0378; J0696; J1815; J1885; J2060; J7060

== ENCOUNTER 2021-08-09 02:19 | Emergency (ER) | payer MEDICARE, OTHER ==
[~2021-08-09] VITALS: Ht 160 cm; Wt 81.2 kg
[~2021-08-09 02:19] MED LIST changes: -ERGO2000 PO; -MECL-311 PO; +METF-1274 PO; -METF1000 PO; -PHE25S RC; -TELM40TA1 PO; -VENL150C1 PO; +VENL150C4 PO
[2021-08-09 02:27] VITALS: BP 100/53
--- NOTE | 2021-08-09 02:30 | NUR ---
PT TAKEN TO BED 05.
[2021-08-09 03:31] LABS: BASOPHILS # (AUTO) 0.1 K/uL (0.00-0.22); BASOPHILS % (AUTO) 1.2 % (0.0-2.0); EOSINOPHILS # (AUTO) 0.4 K/uL (0-0.4); EOSINOPHILS % (AUTO) 3.8 % (0.0-4.0); HEMATOCRIT 40.9 % (36-48); HEMOGLOBIN 13.3 g/dL (12.0-16.0); LYMPHOCYTES # (AUTO) 3.1 K/uL (2.5-16.5); LYMPHOCYTES % (AUTO) 32.1 % (20.5-51.1); MEAN CORPUSCULAR HEMOGLOBIN 29 pg (27-31); MEAN CORPUSCULAR HGB CONC 33 g/dL (33-37); MEAN CORPUSCULAR VOLUME 87.9 fL (80-94); MONOCYTES % (AUTO) 10.7 % (1.7-9.3); NEUTROPHILS % (AUTO) 52.2 % (42.2-75.2); PLATELET COUNT (AUTO) 278 K/uL (140-450); RED BLOOD CELL COUNT(AUTO) 4.65 MIL/uL (4.20-5.40); RED CELL DISTRIBUTION WIDTH 15.5 % (11.6-13.7); WHITE BLOOD COUNT (AUTO) 9.5 K/uL (4.8-10.8)
[2021-08-09] MEDS ORDERED: ACETAMINOPHEN EXTRA STRENGTH 500 MG TAB PO ONE (03:35)
[2021-08-09 03:54] LABS: ALBUMIN 3.3 g/dL (3.4-5.0); ANION GAP 5.7 (8-16); CARBON DIOXIDE 35.9 mmol/L (21-32); CREATININE 0.8 mg/dL (0.6-1.3); POTASSIUM 3.6 mmol/L (3.5-5.1); TOTAL BILIRUBIN 0.3 mg/dL (0.0-1.0)
[2021-08-09] MEDS ORDERED: FUROSEMIDE 20 MG TAB PO ONE (04:15)
[2021-08-09] MEDS ORDERED: COMP1EAC MC (04:16)
[2021-08-09] MEDS ORDERED: FURO-572 PO (04:16)
--- NOTE | 2021-08-09 04:25 | NUR ---
71 YO F BIB SELF FOR BILAT LEG PAIN . PT STATES IT FEELS LIKE CRAMPING. PT STATES SHE ALSO FEELS DIZZY . SHE DID NOT TAKE AY PT STATES SHE THINK IT MAY BE VARICOSE VEINS. PT HAS PITTING +1 EDEMA TO LOWER LEGS. A&O X4 AMBULATORY WITH SOME WEAKNESS IN LEGS PT HAS HX OF DM2 AND HTN PT DOESNT RECALL MEDS
--- NOTE | 2021-08-09 04:45 | NUR ---
The patient's care was reviewed and supervised by Aggie Corbin RN, RN.
[2021-08-09 04:47] VITALS: BP 115/74
--- NOTE | 2021-08-09 04:47 | NUR ---
Patient discharged with v/s stable. Written and verbal after care instructions given and explained. Patient alert, oriented and verbalized understanding of instructions. Ambulatory with steady gait. All questions addressed prior to discharge. ID band removed. Patient advised to follow up with PMD. Rx of LASIX AND SOCKS given. Opportunity to ask questions provided and answered.
== END 2021-08-09 04:47 | disposition home or self-care (01) ==
LOC: MED 02:19
DX: R60.0 Localized edema (principal); E11.9 Type 2 diabetes mellitus without complications; I10 Essential (primary) hypertension; Z79.4 Long term (current) use of insulin; Z79.899 Other long term (current) drug therapy; Z88.6 Allergy status to analgesic agent; Z88.8 Allergy status to other drugs, medicaments and biological substances
CPT/HCPCS: 36415; 71045; 80053; 83880; 84484; 85025; 93005; 99285; Q0092

== ENCOUNTER 2021-10-16 19:29 | Emergency (ER) | payer MEDICARE ==
[~2021-10-16] VITALS: Ht 160 cm; Wt 83.6 kg
[~2021-10-16 19:29] MED LIST changes: +COMP1EAC MC; +FURO-572 PO
[2021-10-16 19:44] VITALS: BP 140/82
--- NOTE | 2021-10-16 19:47 | NUR ---
PT TO LOBBY
[2021-10-17] MEDS ORDERED: KETOROLAC 60 MG/2 ML VIAL IM ONE ×2 (00:05→00:08)
[2021-10-17] MEDS ORDERED: NAPR-54 PO (00:24)
[2021-10-17 00:28] VITALS: BP 140/82
== END 2021-10-17 00:28 | disposition home or self-care (01) ==
LOC: MED 19:29
DX: S22.32XA Fracture of one rib, left side, initial encounter for closed fracture (principal); E11.9 Type 2 diabetes mellitus without complications; I10 Essential (primary) hypertension; Z79.4 Long term (current) use of insulin; Z79.899 Other long term (current) drug therapy; Z79.1 Long term (current) use of non-steroidal anti-inflammatories (NSAID); W18.30XA Fall on same level, unspecified, initial encounter; Y93.89 Activity, other specified; Y92.89 Other specified places as the place of occurrence of the external cause; Y99.8 Other external cause status
CPT/HCPCS: 71100; 96372; 99283; J1885

== ENCOUNTER 2022-01-11 18:54 | Emergency (ER) | payer MEDICARE ==
[~2022-01-11] VITALS: Ht 172.7 cm; Wt 83.9 kg
[~2022-01-11 18:54] MED LIST changes: +NAPR-54 PO
[2022-01-11 19:03] VITALS: BP 148/73
--- NOTE | 2022-01-11 21:18 | NUR ---
PT W/C ASSISTED TO BED #5
--- NOTE | 2022-01-11 23:08 | NUR ---
The patient's care was reviewed and supervised by Payton Santoyo RN.
== END 2022-01-11 22:46 | disposition home or self-care (01) ==
LOC: MED 18:54
DX: I83.12 Varicose veins of left lower extremity with inflammation (principal); I10 Essential (primary) hypertension; E11.9 Type 2 diabetes mellitus without complications; Z79.4 Long term (current) use of insulin; Z79.899 Other long term (current) drug therapy; Z79.1 Long term (current) use of non-steroidal anti-inflammatories (NSAID)
CPT/HCPCS: 99281

== ENCOUNTER 2022-01-20 18:23 | Emergency (ER) | payer MEDICARE ==
[~2022-01-20] VITALS: Ht 160 cm; Wt 86.2 kg
[2022-01-20 18:29] VITALS: BP 184/67
--- NOTE | 2022-01-20 18:36 | NUR ---
PT W/C ASSISTED TO BED 8.
--- NOTE | 2022-01-20 18:40 | NUR ---
71YO FEMALE PT C/O TIGHT 11/17 CHEST PAIN XYESTEDAY. STATES SUDDEN CONSTANT ONSET W/ RADIATION TO L SHOULDER. N/V/D X4-BLOOD. +NUMBING IN FINGERS AND TOES -LOSS OF SENSATION. DENIES TAKING MEDICATION, SOB, FEVER OR CHILLS. PT AAOX4, IN VISIBLE DISTRESS AND GUARDING CHEST. WHEELCHAIR ASSISTED TO ROOM. 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 BED AT LOWEST POSTION, BED RAILS UPX2. HX: HTN, DIABETES ALLERGIES: DICLOFENAC, FLUCONAZOLE
[2022-01-20] MEDS ORDERED: ASPIRIN 325 MG TAB PO ONE (18:45)
[2022-01-20] MEDS ORDERED: NITROGLYCERIN 0.4 MG TAB SL ONE (18:45)
--- NOTE | 2022-01-20 18:47 | NUR ---
XRAY AT BEDSIDE
--- NOTE | 2022-01-20 18:49 | NUR ---
pt swabbed for covid(alli) and flu. handed to lab
--- NOTE | 2022-01-20 19:30 | NUR ---
REPORT GIVEN TO KARY VILLARREAL. TRANSFER OF CARE AT THIS TIME
[2022-01-20 19:33] LABS: BASOPHILS # (AUTO) 0.1 K/uL (0.00-0.22); BASOPHILS % (AUTO) 0.6 % (0.0-2.0); EOSINOPHILS # (AUTO) 0.2 K/uL (0-0.4); EOSINOPHILS % (AUTO) 1.2 % (0.0-4.0); HEMOGLOBIN 14.1 g/dL (12.0-16.0); LYMPHOCYTES # (AUTO) 3.6 K/uL (2.5-16.5); LYMPHOCYTES % (AUTO) 28.9 % (20.5-51.1); MEAN CORPUSCULAR HEMOGLOBIN 30 pg (27-31); MEAN CORPUSCULAR HGB CONC 33 g/dL (33-37); MEAN CORPUSCULAR VOLUME 90.4 fL (80-94); MONOCYTES # (AUTO) 0.6 K/uL (0.8-1.0); MONOCYTES % (AUTO) 5.2 % (1.7-9.3); NEUTROPHILS % (AUTO) 64.1 % (42.2-75.2); PLATELET COUNT (AUTO) 330 K/uL (140-450); RED BLOOD CELL COUNT(AUTO) 4.75 MIL/uL (4.20-5.40); RED CELL DISTRIBUTION WIDTH 14.2 % (11.6-13.7); WHITE BLOOD COUNT (AUTO) 12.4 K/uL (4.8-10.8)
[2022-01-20 19:59] LABS: PROTHROMBIN TIME 10.7 secs (10.8-13.4)
[2022-01-20 20:12] LABS: ALBUMIN 3.5 g/dL (3.4-5.0); ANION GAP 14.7 (8-16); CARBON DIOXIDE 29.7 mmol/L (21-32); CREATININE 0.5 mg/dL (0.6-1.3); POTASSIUM 4.4 mmol/L (3.5-5.1); TOTAL BILIRUBIN 0.5 mg/dL (0.0-1.0)
[2022-01-20 20:43] LABS: D-DIMER < 100 ng/ml (0-400)
--- NOTE | 2022-01-20 21:18 | NUR ---
LAB AT BEDSIDE
[2022-01-20 22:15] VITALS: BP 164/63
== END 2022-01-20 22:15 | disposition home or self-care (01) ==
LOC: MED 18:23
DX: R07.89 Other chest pain (principal); Z20.822 Contact with and (suspected) exposure to COVID-19; I10 Essential (primary) hypertension; E11.9 Type 2 diabetes mellitus without complications; Z79.4 Long term (current) use of insulin; Z79.899 Other long term (current) drug therapy; Z88.8 Allergy status to other drugs, medicaments and biological substances
CPT/HCPCS: 36415; 71045; 80053; 82948; 83880; 84484; 85025; 85379; 85610; 85730; 87426; 87804; 93005; 99285; Q0092

== ENCOUNTER 2022-04-25 16:29 | Emergency (ER) | payer MEDICARE, OTHER ==
[~2022-04-25] VITALS: Ht 162.6 cm; Wt 83.1 kg
[2022-04-25 16:45] VITALS: BP 168/135
--- NOTE | 2022-04-25 17:19 | NUR ---
PT AMB TO BED 8.
--- NOTE | 2022-04-25 17:35 | NUR ---
72 y/o female bib self with c/o left pinky nail avulsion x today. Patient is noted with bloody nail bed with no nail and no active bleeding at this time. Patient's left pinky is noted with swelling and discoloration. Patient took Naproxen prior to arrival. Medical History: DM, HTN NKDA
--- NOTE | 2022-04-25 18:19 | NUR ---
Dr. Muñiz evaluating patient at bedside.
[2022-04-25] MEDS ORDERED: BACITRACIN OINT 500 UNITS/GM PKT TP ONE (18:20)
[2022-04-25] MEDS ORDERED: HYDROcodone/APAP 5/325 MG 1 TAB TAB PO ONE (18:20)
[2022-04-25] MEDS ORDERED: IBUPROFEN 600 MG TAB PO ONE (18:20)
[2022-04-25] MEDS ORDERED: CEPH-588 PO (18:43)
[2022-04-25] MEDS ORDERED: ACET-9882 PO (18:43)
[2022-04-25 18:57] VITALS: BP 145/75
--- NOTE | 2022-04-25 18:57 | NUR ---
Patient discharged with v/s stable. Written and verbal after care instructions given. Patient alert, oriented and verbalized understanding of instructions. Ambulatory with steady gait. All questions addressed prior to discharge. ID band removed. Patient advised to follow up with PMD. Rx of Keflex and Tylenol given. Opportunity to ask questions provided and answered.
--- NOTE | 2022-04-25 19:12 | NUR ---
The patient's care was reviewed and supervised by Aggie Corbin RN, RN.
== END 2022-04-25 18:57 | disposition home or self-care (01) ==
LOC: MED 16:29
DX: S61.307A Unspecified open wound of left little finger with damage to nail, initial encounter (principal); E11.9 Type 2 diabetes mellitus without complications; I10 Essential (primary) hypertension; Z98.890 Other specified postprocedural states; Z79.899 Other long term (current) drug therapy; Z79.2 Long term (current) use of antibiotics; Z79.1 Long term (current) use of non-steroidal anti-inflammatories (NSAID); Z79.01 Long term (current) use of anticoagulants; Z79.4 Long term (current) use of insulin; Z88.8 Allergy status to other drugs, medicaments and biological substances; Z88.6 Allergy status to analgesic agent; X58.XXXA Exposure to other specified factors, initial encounter; Y92.89 Other specified places as the place of occurrence of the external cause; Y93.89 Activity, other specified; Y99.8 Other external cause status
CPT/HCPCS: 99283